=== PATIENT | female | born 1980 | race American Indian/Alaskan Native ===

== ENCOUNTER 2016-07-08 16:24 | Emergency (ER) | payer OTHER ==
[2016-07-08] MEDS ORDERED: MOTRIN ONE (19:29)
[2016-07-08] MEDS ORDERED: MOTRIN PO ONE (19:34)
[2016-07-08] MEDS ORDERED: MORPHINE IM ONE (20:29)
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
--- NOTE | 2016-07-08 21:55 | Cat Scan Report ---
FINAL REPORT PROCEDURE: CT LUMBAR SPINE WO CON TECHNIQUE: Computerized axial tomography of the lumbar spine was performed from T12 to the sacrum without contrast material. HISTORY: LUMBAR SPINE TENDERNESS, PAIN COMPARISON: No prior studies are available for comparison. FINDINGS: No fracture or subluxation is visualized. There is mild lumbar scoliosis convex the left apex at L3. L1-2: No significant abnormality. L2-3: No significant abnormality. L3-4: No significant abnormality. L4-5: Mild disc bulge is present without focal disc herniation or spinal stenosis.. L5-S1: No focal disc herniation is visualized. Severe facet arthritis is present bilaterally.. Other: None. IMPRESSION: Mild scoliosis. No evidence of fracture or subluxation. Severe facet arthritis L5-S1. Mild disc bulge L4-5 level without focal disc herniation or spinal stenosis.
--- NOTE | 2016-07-08 22:08 | Cat Scan Report ---
FINAL REPORT PROCEDURE: CT THORACIC SPINE WO CON TECHNIQUE: Computerized axial tomography of the thoracic spine was performed from C7 - L1 without contrast material. HISTORY: severe back pain COMPARISON: No prior studies are available for comparison. FINDINGS: No fracture or subluxation is visualized. The posterior elements are intact. There is mild thoracolumbar scoliosis convex the right apex at T9. Small anterior osteophytic spurs are visualized in the lower thoracic spine. There is partial calcification of the T6-T7 disc. This is nonspecific. No focal disc herniation or spinal stenosis is visualized. Bone density appears normal. Neural foramina bilaterally are unremarkable. There are moderate size osteophytic spurs at the articulation of the left 9th rib with the left transverse process of T9. No other abnormalities are seen. IMPRESSION: No fracture or subluxation visualized. There is mild scoliosis. Mild degenerative disc disease as described. Moderate-sized osteophytic spurring seen between the articulation of the left 9th rib and the left transverse process of T9. No other abnormalities are identified.
[2016-07-08 22:35] VITALS: BP 150/70
== END 2016-07-08 22:50 | disposition home or self-care (01) ==
LOC: ED 16:24
DX: M54.16 Radiculopathy, lumbar region (principal); M41.9 Scoliosis, unspecified; M53.86 Other specified dorsopathies, lumbar region; I10 Essential (primary) hypertension; Z90.49 Acquired absence of other specified parts of digestive tract; Z90.89 Acquired absence of other organs
CPT/HCPCS: 72128; 72131; 96372; 99284; J2270; J2920

== ENCOUNTER 2016-07-24 15:35 | Emergency (ER) | payer OTHER ==
[2016-07-24 15:47] VITALS: BP 141/93
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
== END 2016-07-24 18:05 | disposition home or self-care (01) ==
LOC: ED 15:35
DX: M25.561 Pain in right knee (principal); M25.461 Effusion, right knee; I10 Essential (primary) hypertension; F17.200 Nicotine dependence, unspecified, uncomplicated; V49.59XA Passenger injured in collision with other motor vehicles in traffic accident, initial encounter; Y93.9 Activity, unspecified; Y92.9 Unspecified place or not applicable; Y99.9 Unspecified external cause status
CPT/HCPCS: 99284

== ENCOUNTER 2017-02-24 12:09 | Emergency (ER) | payer OTHER ==
[2017-02-24 15:06] LABS: Bilirubin,Urine NEG (Negative); Blood,Urine NEG (Negative); Color,Urine Yellow (Yellow); HCG Qualitative,Urine Negative (Negative); Mucus,Urine FEW /HPF; Nitrite,Urine NEG (Negative); Protein,Urine <15 mg/dL mg/dL (Negative)
[2017-02-24] MEDS ORDERED: TORADOL IM ONE (15:54)
--- NOTE | 2017-02-24 16:17 | Emergency Department Report ---
ED Back Pain/Injury HPI - General Chief Complaint: Back Pain/Injury Stated Complaint: BACK PAIN Time Seen by Provider: 02/24/17 14:41 Source: patient Limitations: No Limitations - History of Present Illness Initial Comments: This is a 36-year-old female nontoxic, well nourished in appearance, no acute signs of distress presents to the ED with c/o of chronic intermittent back pain. Patient stated she was seen by a provider and has had CT scan of throacic and lumbar spine with mild scoliosis, severe arthritis of L5-S1, and mild disc bulging of L4-5 without focal disc herniation or spinal stenosis. Patient stated the past 2 days symptoms returned. Patient also stated symptoms radiates to right lower extremity. Patient denies any new trauma to the region. Patient denies any bladder or bowel instability, dysuria, pyuria, hematuria, fever, chills, nausea, vomiting, chest pain, shortness of breath, abdominal pain, pelvic pain. Patient denies any allergies or PMH. MD Complaint: back pain -: days(s) (2) Similar Symptoms Previously: Yes Place: home Radiation: right leg Severity: mild Severity scale (0 -10): 8 Quality: aching Consistency: constant Improves With: none Worsens With: none Associated Symptoms: denies other symptoms. denies: confusion, weakness, chest pain, numbness, difficulty walking, cough, difficulty urinating, diaphoresis, incontinence, fever/chills, constipation, headaches, abdominal pain, loss of appetite, malaise, nausea/vomiting, rash, seizure, shortness of breath, syncope - Related Data Home Medications Medication Instructions Recorded Confirmed Last Taken Lisinopril/Hydrochlorothiazide 20 mg PO BID 08/17/13 08/17/13 Unknown [Zestoretic 20-12.5 mg] Previous Rx's Medication Instructions Recorded Last Taken Type Cyclobenzaprine [Flexeril] 10 mg PO BID #20 tablet 07/24/16 Unknown Rx Naproxen [Naprosyn TAB] 500 mg PO BID #20 tablet 07/24/16 Unknown Rx Tramadol HCl/Acetaminophen 1 each PO Q4HR PRN #30 tablet 07/24/16 Unknown Rx [Ultracet Tablet] Cyclobenzaprine [Flexeril] 10 mg PO BID PRN #10 tablet 02/24/17 Unknown Rx Naproxen [Naprosyn TAB] 500 mg PO BID #30 tablet 02/24/17 Unknown Rx Allergies Allergy/AdvReac Type Severity Reaction Status Date / Time No Known Allergies Allergy Unverified 08/17/13 11:53 ED Review of Systems ROS: Stated complaint: BACK PAIN Other details as noted in HPI Constitutional: denies: chills, fever Eyes: denies: eye pain, eye discharge, vision change ENT: denies: ear pain, throat pain Respiratory: denies: cough, shortness of breath, wheezing Cardiovascular: denies: chest pain, palpitations Endocrine: no symptoms reported Gastrointestinal: denies: abdominal pain, nausea, diarrhea Genitourinary: denies: urgency, dysuria, discharge Musculoskeletal: back pain. denies: joint swelling, arthralgia Skin: denies: rash, lesions Neurological: denies: headache, weakness, paresthesias Psychiatric: denies: anxiety, depression Hematological/Lymphatic: denies: easy bleeding, easy bruising ED Past Medical Hx - Past Medical History Hx Hypertension: Yes Additional medical history: back pain - Surgical History Hx Cholecystectomy: Yes Additional Surgical History: tonsillectomy 2001 - Social History Smoking Status: Never Smoker Substance Use Type: None - Medications Home Medications: Home Medications Medication Instructions Recorded Confirmed Last Taken Type Lisinopril/Hydrochlorothiazide 20 mg PO BID 08/17/13 08/17/13 Unknown History [Zestoretic 20-12.5 mg] Cyclobenzaprine [Flexeril] 10 mg PO BID #20 tablet 07/24/16 Unknown Rx Naproxen [Naprosyn TAB] 500 mg PO BID #20 tablet 07/24/16 Unknown Rx Tramadol HCl/Acetaminophen 1 each PO Q4HR PRN #30 tablet 07/24/16 Unknown Rx [Ultracet Tablet] Cyclobenzaprine [Flexeril] 10 mg PO BID PRN #10 tablet 02/24/17 Unknown Rx Naproxen [Naprosyn TAB] 500 mg PO BID #30 tablet 02/24/17 Unknown Rx ED Physical Exam - General Limitations: No Limitations General appearance: alert, in no apparent distress - Head Head exam: Present: atraumatic, normocephalic, normal inspection - Eye Eye exam: Present: normal appearance, PERRL, EOMI. Absent: scleral icterus, conjunctival injection, nystagmus, periorbital swelling, periorbital tenderness Pupils: Present: normal accommodation - ENT ENT exam: Present: normal exam, normal orophraynx, mucous membranes moist, TM's normal bilaterally, normal external ear exam - Neck Neck exam: Present: normal inspection - Respiratory Respiratory exam: Present: normal lung sounds bilaterally. Absent: respiratory distress, wheezes, rales, rhonchi, stridor, chest wall tenderness, accessory muscle use, decreased breath sounds, prolonged expiratory - Cardiovascular Cardiovascular Exam: Present: regular rate, normal rhythm, normal heart sounds. Absent: bradycardia, tachycardia, irregular rhythm, systolic murmur, diastolic murmur, rubs, gallop - GI/Abdominal GI/Abdominal exam: Present: soft, normal bowel sounds. Absent: distended, tenderness, guarding, rebound, rigid, diminished bowel sounds - Rectal Rectal exam: Present: deferred - Extremities Exam Extremities exam: Present: normal inspection, full ROM, normal capillary refill. Absent: tenderness, pedal edema, joint swelling, calf tenderness - Back Exam Back exam: Present: normal inspection, full ROM, paraspinal tenderness (lumbar region). Absent: tenderness, CVA tenderness (R), CVA tenderness (L), muscle spasm, vertebral tenderness, rash noted - Expanded Back Exam Expanded Back exam: Present: normal rectal tone. Absent: saddle anesthesia Back exam: Negative Straight Leg Raising: Left, Right - Neurological Exam Neurological exam: Present: alert, oriented X3, CN II-XII intact, normal gait, reflexes normal - Psychiatric Psychiatric exam: Present: normal affect, normal mood - Skin Skin exam: Present: warm, dry, intact, normal color. Absent: rash ED Course Vital Signs 02/24/17 12:30 Temperature 98.4 F Pulse Rate 64 Respiratory 18 Rate Blood Pressure 168/98 O2 Sat by Pulse 100 Oximetry - Reevaluation(s) Reevaluation #1: 02/24/17 16:28 Patient is speaking in full sentences with no signs of distress noted. ED Medical Decision Making - Medical Decision Making This is a 36-year-old female that presents with low back strain. Patient is stable and was examined by me. Patient received Toradol in the ED with a history of symptoms has improved subsided. I obtained patient's old medical records on 07/08/[address] scan of spine and the radiologist with mild scoliosis, mild disc bulging, arthritis. Patient be treated with Flexeril and naproxen after she states symptoms has resolved when she took these. Patient was instructed to not operate any machinery while taking Flexeril due to drowsiness. She was instructed Follow-up with a primary care doctor in 3-5 days or if symptoms worsen and continue return to emergency room as soon as possible. At time time of discharge, the patient does not seem toxic or ill in appearance. No acute signs of distress noted. Patient agrees to discharge treatment plan of care. No further questions noted by the patient. Critical care attestation.: If time is entered above; I have spent that time in minutes in the direct care of this critically ill patient, excluding procedure time. ED Disposition Clinical Impression: Low back strain Qualifiers: Encounter type: initial encounter Qualified Code(s): S39.012A - Strain of muscle, fascia and tendon of lower back, initial encounter Disposition: TO HOME OR SELFCARE Is pt being admited?: No Does the pt Need Aspirin: No Condition: Stable Instructions: Low Back Strain (ED), Naproxen (By mouth), Cyclobenzaprine (By mouth) Additional Instructions: Follow-up with your primary care doctor in 3-5 days or if symptoms worsen such as bladder or bowel stability, chest pain, short of breath, numbness or tingling sensation in extremities, headache, dizziness, visual changes, nausea vomiting, or abdominal pain, return back to emergency room as was possible. Take naproxen and Flexeril as prescribed. Do not operate heavy machinery while taking Flexeril due to sedation Prescriptions: Cyclobenzaprine [Flexeril] 10 mg PO BID PRN #10 tablet PRN Reason: Muscle Spasm Naproxen [Naprosyn TAB] 500 mg PO BID #30 tablet Referrals: FREDY MEEKS MD [Primary Care Provider] - 3-5 Days PRIMARY CARE, [Referring] - 3-5 Days [facility] [Outside] - 3-5 Days [facility] [Outside] - 3-5 Days Forms: Work/School Release Form(ED)
[2017-02-24 17:16] VITALS: BP 147/99
== END 2017-02-24 17:14 | disposition home or self-care (01) ==
LOC: ED 12:09
DX: S39.012A Strain of muscle, fascia and tendon of lower back, initial encounter (principal); I10 Essential (primary) hypertension; X58.XXXA Exposure to other specified factors, initial encounter; Y93.89 Activity, other specified; Y99.8 Other external cause status; Y92.89 Other specified places as the place of occurrence of the external cause
CPT/HCPCS: 81001; 81025; 96372; 99283; J1885

== ENCOUNTER 2017-10-08 12:56 | Emergency (ER) | payer OTHER ==
[2017-10-08] MEDS ORDERED: TYLENOL #3 PO ONE (17:40)
[2017-10-08 18:22] LABS: Basophils % (Auto) 0.4 % (0.0-1.8); Eosinophils # (Auto) 0.2 K/mm3 (0.0-0.4); Hematocrit 46.1 % (30.3-42.9); Hemoglobin 15.3 gm/dl (10.1-14.3); Lymphocytes # (Auto) 2.9 K/mm3 (1.2-5.4); Mean Corpuscular HGB Conc 33 % (30-34); Mean Corpuscular Hemoglobin 30 pg (28-32); Mean Corpuscular Volume 91 fl (79-97); Monocytes # (Auto) 0.7 K/mm3 (0.0-0.8); Monocytes % (Auto) 8.6 % (0.0-7.3); Platelet Count 220 K/mm3 (140-440); Red Blood Count 5.09 M/mm3 (3.65-5.03); Red Cell Distribution Width 14.6 % (13.2-15.2)
[2017-10-08 18:29] LABS: BUN/Creatinine Ratio 18; Blood Urea Nitrogen 9 mg/dL (7-17); Calcium 9.5 mg/dL (8.4-10.2); Hemolysis Index 24
--- NOTE | 2017-10-08 19:00 | Emergency Department Report ---
ED Lower Extremity HPI - General Chief Complaint: Extremity Problem,Nontraumatic Stated Complaint: RIGHT KNEE PAIN Time Seen by Provider: 10/08/17 17:36 Source: patient Mode of arrival: Wheelchair Limitations: Physical Limitation - History of Present Illness Initial Comments: This is a 36-year-old female nontoxic, well nourished in appearance, no acute signs of distress presents to the ED with c/o of acute on chronic right knee pain 1 day. Patient stated that she was walking a lot yesterday and developed pain that worsened today. Patient denies any trauma. Patient denies any numbness, tingling, fever, chills, nausea, vomiting, chest pain, shortness of breath, headache, stiff neck. Patient denies any joint swelling or joint redness. Patient denies decreased range of motion. Patient stated has decreased gait due to pain. Patient denies any allergies or significant past medical history. MD Complaint: knee injury -: days(s) (1) Injury: Knee: Right Severity: mild Severity scale (0 -10): 8 Improves With: immobilization Worsens With: weight bearing, movement Associated Symptoms: swelling, able to partially bear weight, ambulatory. denies: snap/pop sensation, numbness, tingling, unable to bear weight - Related Data Home Medications Medication Instructions Recorded Confirmed Last Taken Lisinopril/Hydrochlorothiazide 20 mg PO BID 08/17/13 08/17/13 Unknown [Zestoretic 20-12.5 mg] Previous Rx's Medication Instructions Recorded Last Taken Type Cyclobenzaprine [Flexeril] 10 mg PO BID #20 tablet 07/24/16 Unknown Rx Naproxen [Naprosyn TAB] 500 mg PO BID #20 tablet 07/24/16 Unknown Rx Tramadol HCl/Acetaminophen 1 each PO Q4HR PRN #30 tablet 07/24/16 Unknown Rx [Ultracet Tablet] Cyclobenzaprine [Flexeril] 10 mg PO BID PRN #10 tablet 02/24/17 Unknown Rx Naproxen [Naprosyn TAB] 500 mg PO BID #30 tablet 02/24/17 Unknown Rx Acetaminophen/Codeine [Tylenol 1 tab PO Q6H PRN #12 tab 10/08/17 Unknown Rx /Codeine # 3 tab] Ibuprofen [Motrin] 600 mg PO Q8H PRN #30 tablet 10/08/17 Unknown Rx Allergies Allergy/AdvReac Type Severity Reaction Status Date / Time No Known Allergies Allergy Unverified 08/17/13 11:53 ED Review of Systems ROS: Stated complaint: RIGHT KNEE PAIN Other details as noted in HPI Constitutional: denies: chills, fever Eyes: denies: eye pain, eye discharge, vision change ENT: denies: ear pain, throat pain Respiratory: denies: cough, shortness of breath, wheezing Cardiovascular: denies: chest pain, palpitations Endocrine: no symptoms reported Gastrointestinal: denies: abdominal pain, nausea, diarrhea Genitourinary: denies: urgency, dysuria, discharge Musculoskeletal: arthralgia. denies: back pain, joint swelling Skin: denies: rash, lesions Neurological: denies: headache, weakness, paresthesias Psychiatric: denies: anxiety, depression Hematological/Lymphatic: denies: easy bleeding, easy bruising ED Past Medical Hx - Past Medical History Previous Medical History?: Yes Hx Hypertension: Yes Additional medical history: back pain - Surgical History Past Surgical History?: Yes Hx Cholecystectomy: Yes Additional Surgical History: tonsillectomy 2001 - Social History Smoking Status: Current Every Day Smoker Substance Use Type: None - Medications Home Medications: Home Medications Medication Instructions Recorded Confirmed Last Taken Type Lisinopril/Hydrochlorothiazide 20 mg PO BID 08/17/13 08/17/13 Unknown History [Zestoretic 20-12.5 mg] Cyclobenzaprine [Flexeril] 10 mg PO BID #20 tablet 07/24/16 Unknown Rx Naproxen [Naprosyn TAB] 500 mg PO BID #20 tablet 07/24/16 Unknown Rx Tramadol HCl/Acetaminophen 1 each PO Q4HR PRN #30 tablet 07/24/16 Unknown Rx [Ultracet Tablet] Cyclobenzaprine [Flexeril] 10 mg PO BID PRN #10 tablet 02/24/17 Unknown Rx Naproxen [Naprosyn TAB] 500 mg PO BID #30 tablet 02/24/17 Unknown Rx Acetaminophen/Codeine [Tylenol 1 tab PO Q6H PRN #12 tab 10/08/17 Unknown Rx /Codeine # 3 tab] Ibuprofen [Motrin] 600 mg PO Q8H PRN #30 tablet 10/08/17 Unknown Rx ED Physical Exam - General Limitations: Physical Limitation General appearance: alert, in no apparent distress - Head Head exam: Present: atraumatic, normocephalic - Eye Eye exam: Present: normal appearance Pupils: Present: normal accommodation - ENT ENT exam: Present: normal exam, mucous membranes moist - Neck Neck exam: Present: normal inspection - Respiratory Respiratory exam: Present: normal lung sounds bilaterally. Absent: respiratory distress - Cardiovascular Cardiovascular Exam: Present: regular rate, normal rhythm. Absent: systolic murmur, diastolic murmur, rubs, gallop - GI/Abdominal GI/Abdominal exam: Present: soft, normal bowel sounds - Extremities Exam Extremities exam: Present: normal inspection, full ROM (with pain), tenderness, normal capillary refill. Absent: joint swelling - Expanded Lower Extremity Exam Right Hip exam: Present: normal inspection, full ROM. Absent: tenderness, swelling Upper Leg exam: Present: normal inspection, full ROM. Absent: tenderness, swelling Knee exam: Present: normal inspection, full ROM (with pain), tenderness, swelling, full knee extension. Absent: abrasion, laceration, ecchymosis, deformity, crepidus, dislocation, erythema, effusion, pain w/ pronation/ supination, posterior draw sign, pain/laxity with valgus, pain/laxity with varus Lower Leg exam: Present: normal inspection, full ROM. Absent: tenderness, swelling Ankle exam: Present: normal inspection, full ROM. Absent: tenderness, swelling Foot/Toe exam: Present: normal inspection, full ROM. Absent: tenderness, swelling Neuro vascular tendon exam: Present: no vascular compromise. Absent: pulse deficit, abnormal cap refill, motor deficit, sensory deficit, tendon deficit, extremity cold to touch, pallor, abnormal 2-point discrimination, decreased fine /light touch, foot drop, peroneal nerve deficit, significant pain with passive ROM of distal joint Gait: Positive: observed and limited by pain - Back Exam Back exam: Present: normal inspection, full ROM - Neurological Exam Neurological exam: Present: alert, oriented X3, normal gait - Psychiatric Psychiatric exam: Present: normal affect, normal mood - Skin Skin exam: Present: warm, dry, intact, normal color. Absent: rash ED Course Vital Signs 10/08/17 13:55 Temperature 98.9 F Pulse Rate 74 Respiratory 18 Rate Blood Pressure 165/114 O2 Sat by Pulse 98 Oximetry - Reevaluation(s) Reevaluation #1: 10/08/17 19:08 Patient is speaking in full sentences with no signs of distress noted. ED Lower Extremity MDM - Lab Data Result diagrams: 10/08/17 18:05 10/08/17 18:05 - Medical Decision Making This is a 36-year-old female that presents with right knee strain. Patient is stable and was examined by me. I referred patient to an orthopedic doctor for further evaluation for possible MRI. X-ray has been obtained and dictated by the radiologist. Patient is notified of the x-ray report with noted by the patient. Labs within normal limits. Patient does have normal gait with no tenderness and no joint swelling. No ecchymosis. no joint redness or swelling. Not warm to touch. No signs of cellulites present. Patient received a knee immobilize and crutches and was educated by RN how to use crutches. Patient was instructed to RICE therapy. Patient received Tylenol with codeine for pain and was instructed not to operate any machinery after discharge due to drowsiness. Patient is discharged with Motrin and Tylenol with codeine. At time of discharge, the patient does not seem toxic or ill in appearance. No acute signs of distress noted. Patient agrees to discharge treatment plan of care. No further questions noted by the patient. Critical care attestation.: If time is entered above; I have spent that time in minutes in the direct care of this critically ill patient, excluding procedure time. ED Disposition Clinical Impression: Strain of right knee Qualifiers: Encounter type: initial encounter Qualified Code(s): S86.911A - Strain of unspecified muscle(s) and tendon(s) at lower leg level, right leg, initial encounter Disposition: - TO HOME OR SELFCARE Is pt being admited?: No Does the pt Need Aspirin: No Condition: Stable Instructions: Knee Pain (ED), Knee Immobilizer (ED), RICE Therapy (ED), Acetaminophen/Codeine (By mouth), Ibuprofen (By mouth), Crutch Instructions (ED) Additional Instructions: Follow-up with a orthopedic doctor in 3-5 days or if symptoms worsen and continue return to emergency room as soon as possible. Do not operate any machinery while taking Tylenol with codeine as this may cause drowsiness. Prescriptions: Acetaminophen/Codeine [Tylenol /Codeine # 3 tab] 1 tab PO Q6H PRN #12 tab PRN Reason: pain Ibuprofen [Motrin] 600 mg PO Q8H PRN #30 tablet PRN Reason: Pain Referrals: PRIMARY CAREMD [Primary Care Provider] - 3-5 Days JEANNA ORR MD [Staff Physician] - 3-5 Days [facility] [Outside] - 3-5 Days [facility] [Outside] - 3-5 Days Forms: Work/School Release Form(ED)
--- NOTE | 2017-10-08 21:03 | XRay Report ---
FINAL REPORT PROCEDURE: XR KNEE 3V RT TECHNIQUE: RIGHT knee radiographs, AP, lateral and sunrise views. CPT 19776 HISTORY: knee pain right COMPARISON: 07/24/2016 FINDINGS: Fracture (s) and/or Dislocation(s): None . Alignment: Normal . Joint space(s): There is mild degree joint effusion. Soft tissues: Normal . Bone mineralization: Mild degree osteophyte formation is noted. Foreign bodies: None . IMPRESSION: No acute fracture Mild degree osteoarthritis with mild degree joint effusion.
[2017-10-08 21:43] VITALS: BP 132/64
== END 2017-10-08 21:41 | disposition home or self-care (01) ==
LOC: ED 12:56
DX: S86.911A Strain of unspecified muscle(s) and tendon(s) at lower leg level, right leg, initial encounter (principal); I10 Essential (primary) hypertension; F17.200 Nicotine dependence, unspecified, uncomplicated; Z90.49 Acquired absence of other specified parts of digestive tract; Z90.89 Acquired absence of other organs; Z79.899 Other long term (current) drug therapy; X58.XXXA Exposure to other specified factors, initial encounter; Y93.01 Activity, walking, marching and hiking; Y99.8 Other external cause status; Y92.89 Other specified places as the place of occurrence of the external cause
CPT/HCPCS: 36415; 80048; 84703; 85025

== ENCOUNTER 2018-12-28 10:53 | Emergency (ER) | payer OTHER ==
[2018-12-28 11:56] LABS: Hematocrit 44.7 % (30.3-42.9); Mean Corpuscular HGB Conc 34 % (30-34); Mean Corpuscular Volume 92 fl (79-97); Platelet Count 217 K/mm3 (140-440); Red Blood Count 4.89 M/mm3 (3.65-5.03); Red Cell Distribution Width 14.8 % (13.2-15.2)
[2018-12-28 13:03] LABS: Basophils % (Manual) 0 % (0.0-1.8); Total Cells Counted 100
[2018-12-28 13:04] LABS: Platelet Estimate Consistent w Auto; RBC Morphology Normal
--- NOTE | 2018-12-28 13:11 | XRay Report ---
CHEST 2 VIEWS INDICATION / CLINICAL INFORMATION: sob. COMPARISON: None available. FINDINGS: SUPPORT DEVICES: None. HEART / MEDIASTINUM: No significant abnormality. LUNGS / PLEURA: No significant pulmonary or pleural abnormality. No pneumothorax. ADDITIONAL FINDINGS: No significant additional findings. IMPRESSION: 1. No acute findings. Signer Name: Jonathan Dash MD Signed: 12/28/2018 1:07 PM Workstation Name: [id number]
[2018-12-28 13:22] LABS: Alanine Aminotransferase 40 units/L (7-56); Albumin 4.3 g/dL (3.9-5); BUN/Creatinine Ratio 10; Blood Urea Nitrogen 5 mg/dL (7-17); Calcium 9.4 mg/dL (8.4-10.2); Hemolysis Index 22
[2018-12-28] MEDS ORDERED: cloNIDine 0.1 MG TAB PO ONE (15:54)
[2018-12-28] MEDS ORDERED: HYDROcodone/ACETAMINOPHEN 5-325 MG TAB PO ONE (15:58)
--- NOTE | 2018-12-28 15:58 | Emergency Department Report ---
ED General Adult HPI - General Chief complaint: High BP Stated complaint: DIZZINESS/HTN Time Seen by Provider: 12/28/18 15:50 Source: patient Mode of arrival: Ambulatory Limitations: No Limitations - History of Present Illness Initial comments: Pt is a 38-year-old who comes to the ER today with high blood pressure. She had a nurse come to her home and do a physical for insurance and she was told her blood pressure was high. The patient then adds that she has known hypertension but has been off her medications due to insurance. Patient denies any headache, chest pain or shortness of breath. She denies any other major medical problems. In review the MR it seems that she has had some back pain with recurrent visits for pain medications. Severity scale (0 -10): 8 - Related Data Previous Rx's Medication Instructions Recorded Last Taken Type Lisinopril [Zestril TAB] 20 mg PO QDAY #30 tablet 12/28/18 Unknown Rx hydroCHLOROthiazide [HCTZ] 25 mg PO QDAY #30 tablet 12/28/18 Unknown Rx Allergies Allergy/AdvReac Type Severity Reaction Status Date / Time No Known Allergies Allergy Unverified 08/17/13 11:53 ED Review of Systems ROS: Stated complaint: DIZZINESS/HTN Other details as noted in HPI Comment: All other systems reviewed and negative ED Past Medical Hx - Past Medical History Previous Medical History?: Yes Hx Hypertension: Yes Additional medical history: back pain - Surgical History Past Surgical History?: Yes Hx Cholecystectomy: Yes Additional Surgical History: tonsillectomy 2001 - Family History Family history: no significant - Social History Smoking Status: Current Every Day Smoker Substance Use Type: None - Medications Home Medications: Home Medications Medication Instructions Recorded Confirmed Last Taken Type Lisinopril [Zestril TAB] 20 mg PO QDAY #30 tablet 12/28/18 Unknown Rx hydroCHLOROthiazide [HCTZ] 25 mg PO QDAY #30 tablet 12/28/18 Unknown Rx ED Physical Exam - General Limitations: No Limitations General appearance: alert, in no apparent distress - Head Head exam: Present: atraumatic, normocephalic - Eye Eye exam: Present: normal appearance - ENT ENT exam: Present: mucous membranes moist - Neck Neck exam: Present: normal inspection - Respiratory Respiratory exam: Present: normal lung sounds bilaterally. Absent: respiratory distress - Cardiovascular Cardiovascular Exam: Present: regular rate, normal rhythm. Absent: systolic murmur, diastolic murmur, rubs, gallop - GI/Abdominal GI/Abdominal exam: Present: soft, normal bowel sounds - Extremities Exam Extremities exam: Present: normal inspection - Back Exam Back exam: Present: normal inspection - Neurological Exam Neurological exam: Present: alert, oriented X3 - Psychiatric Psychiatric exam: Present: normal affect, normal mood - Skin Skin exam: Present: warm, dry, intact, normal color. Absent: rash ED Course Vital Signs 12/28/18 12/28/18 12/28/18 10:59 15:51 16:12 Temperature 98.4 F 98.6 F Pulse Rate 76 74 74 Respiratory 18 18 20 Rate Blood Pressure 156/102 166/103 Blood Pressure 166/103 [Left] O2 Sat by Pulse 96 96 Oximetry ED Medical Decision Making - Lab Data Result diagrams: 12/28/18 11:36 12/28/18 11:36 - EKG Data -: EKG Interpreted by Oh EKG shows normal: sinus rhythm Rate: normal - EKG Data When compared to previous EKG there are: no significant change Interpretation: no acute changes - Radiology Data Radiology results: report reviewed, image reviewed - Medical Decision Making Labs 12/28/18 12/28/18 12/28/18 11:36 11:36 Unknown WBC 5.0 RBC 4.89 Hgb 15.0 H Hct 44.7 H MCV 92 MCH 31 MCHC 34 RDW 14.8 Plt Count 217 Add Manual Diff Complete Total Counted 100 Seg Neutrophils % Staff Nurse Midwife Seg Neuts % (Manual) 35.0 L Band Neutrophils % 0 Lymphocytes % (Manual) 56.0 H Reactive Lymphs % (Man) 0 Monocytes % (Manual) 4.0 Eosinophils % (Manual) 5.0 H Basophils % (Manual) 0 Metamyelocytes % 0 Myelocytes % 0 Promyelocytes % 0 Blast Cells % 0 Nucleated RBC % Not Reportable Seg Neutrophils # Man 1.8 Band Neutrophils # 0.0 Lymphocytes # (Manual) 2.8 Abs React Lymphs (Man) 0.0 Monocytes # (Manual) 0.2 Eosinophils # (Manual) 0.3 Basophils # (Manual) 0.0 Metamyelocytes # 0.0 Myelocytes # 0.0 Promyelocytes # 0.0 Blast Cells # 0.0 WBC Morphology Not Reportable Hypersegmented Neuts Not Reportable Hyposegmented Neuts Not Reportable Hypogranular Neuts Not Reportable Smudge Cells Not Reportable Toxic Granulation Not Reportable Toxic Vacuolation Not Reportable Dohle Bodies Not Reportable Pelger-Huet Anomaly Not Reportable Lewis Rods Not Reportable Platelet Estimate Consistent w auto Clumped Platelets Not Reportable Plt Clumps, EDTA Not Reportable Large Platelets Not Reportable Giant Platelets Not Reportable Platelet Satelliting Not Reportable Plt Morphology Comment Not Reportable RBC Morphology Normal Dimorphic RBCs Not Reportable Polychromasia Not Reportable Hypochromasia Not Reportable Poikilocytosis Not Reportable Anisocytosis Not Reportable Microcytosis Not Reportable Macrocytosis Not Reportable Spherocytes Not Reportable Pappenheimer Bodies Not Reportable Sickle Cells Not Reportable Target Cells Not Reportable Tear Drop Cells Not Reportable Ovalocytes Not Reportable Helmet Cells Not Reportable [place] Bodies Not Reportable [place] Rings Not Reportable Amrit Cells Not Reportable Bite Cells Not Reportable Crenated Cell Not Reportable Elliptocytes Not Reportable Acanthocytes (Spur) Not Reportable Rouleaux Not Reportable Hemoglobin C Crystals Not Reportable Schistocytes Not Reportable Malaria parasites Not Reportable Nabeel Bodies Not Reportable Hem Pathologist Commnt No Sodium 139 Potassium 4.7 Chloride 104.8 Carbon Dioxide 20 L Anion Gap 19 BUN 5 L Creatinine 0.5 L Estimated GFR > 60 BUN/Creatinine Ratio 10 Glucose 91 Calcium 9.4 Total Bilirubin 0.30 AST 33 ALT 40 Alkaline Phosphatase 126 Troponin T < 0.010 NT-Pro-B Natriuret Pep 20.42 Total Protein 8.1 Albumin 4.3 Albumin/Globulin Ratio 1.1 bp noted pt off meds labs noted no end organ failure rx and dc home with rx for her bp meds and pcp follow up. pt instructed on plan of care and need to take meds and follow up. - Differential Diagnosis a/c htn Critical care attestation.: If time is entered above; I have spent that time in minutes in the direct care of this critically ill patient, excluding procedure time. ED Disposition Clinical Impression: Hypertension, Nonadherence to medical treatment Disposition: DC-01 TO HOME OR SELFCARE Is pt being admited?: No Does the pt Need Aspirin: No Condition: Stable Instructions: DASH Eating Plan (ED), Hypertension (ED) Additional Instructions: MEDS ORDERED TODAY FOLLOW UP WITH PCP REFERRAL BELOW LOW SALT AND LOW FAT DIET SEE ATTACHED Prescriptions: hydroCHLOROthiazide [HCTZ] 25 mg PO QDAY #30 tablet Lisinopril [Zestril TAB] 20 mg PO QDAY #30 tablet Referrals: [facility] [Outside] - 3-5 Days Time of Disposition: 15:55
[2018-12-28 17:24] VITALS: BP 138/93
== END 2018-12-28 17:38 | disposition home or self-care (01) ==
LOC: ED 10:53
DX: I10 Essential (primary) hypertension (principal); F17.200 Nicotine dependence, unspecified, uncomplicated; M54.9 Dorsalgia, unspecified; Z91.19 Patient's noncompliance with other medical treatment and regimen; Z90.49 Acquired absence of other specified parts of digestive tract; Z90.89 Acquired absence of other organs; Z79.899 Other long term (current) drug therapy
CPT/HCPCS: 36415; 71046; 80053; 83880; 84484; 85007; 85025

== ENCOUNTER 2019-05-02 11:39 | Emergency (ER) | payer BC ==
--- NOTE | 2019-05-02 12:52 | Emergency Department Report ---
Blank Doc - Documentation Documentation: 38-year-old female that presents with generalized weakness and bilateral leg s welling. This initial assessment/diagnostic orders/clinical plan/treatment(s) is/are subject to change based on patient's health status, clinical progression and re- assessment by fellow clinical providers in the ED. Further treatment and workup at subsequent clinical providers discretion. Patient/guardians urged not to elope from the ED as their condition may be serious if not clinically assessed and managed. Initial orders include: 1- Patient sent to MAIN ED for further evaluation and treatment 2- cardiac workup
[2019-05-02 13:41] LABS: Basophils % (Auto) 0.8 % (0.0-1.8); Eosinophils # (Auto) 0.2 K/mm3 (0.0-0.4); Hematocrit 43.7 % (30.3-42.9); Hemoglobin 14.6 gm/dl (10.1-14.3); Lymphocytes # (Auto) 2.7 K/mm3 (1.2-5.4); Lymphocytes % (Auto) 44.6 % (13.4-35.0); Mean Corpuscular HGB Conc 34 % (30-34); Mean Corpuscular Volume 92 fl (79-97); Monocytes # (Auto) 0.6 K/mm3 (0.0-0.8); Monocytes % (Auto) 9.4 % (0.0-7.3); Platelet Count 265 K/mm3 (140-440); Red Blood Count 4.74 M/mm3 (3.65-5.03); Red Cell Distribution Width 14.1 % (13.2-15.2)
--- NOTE | 2019-05-02 14:14 | XRay Report ---
CHEST 2 VIEWS INDICATION: Chest Pain. COMPARISON: 12/28/2018. FINDINGS: Support devices: None. Heart: Within normal limits. Lungs/Pleura: No acute air space or interstitial disease. Persistent scarring left base. No significa nt pleural effusion. IMPRESSION: No acute findings. Signer Name: Pravin Martins MD Signed: 05/02/2019 2:09 PM Workstation Name: [id number]
[2019-05-02] MEDS ORDERED: FUROSEMIDE 40 MG/4 ML INJ IV ONE (14:59)
--- NOTE | 2019-05-02 15:03 | Emergency Department Report ---
HPI - General Chief Complaint: Dyspnea/Respdistress Time Seen by Provider: 05/02/19 12:50 - HPI HPI: 38-year-old -[place] female presents to the emergency department with complaint of a one-week history of progressively worsening bilateral lower e xtremity swelling from the knees down through the feet. She denies any skin color change, rash, but does have pain to these areas. She denies any fever, chest pain, shortness of breath. No recent travel or sick contacts at home. She denies any history of CHF but says that she has been on "water pills" in the past that is HCTZ. She has a past medical history of hypertension. She has not taken anything for symptoms prior to presentation today. ED Past Medical Hx - Past Medical History Previous Medical History?: Yes Hx Hypertension: Yes Additional medical history: back pain - Surgical History Past Surgical History?: Yes Hx Cholecystectomy: Yes Additional Surgical History: tonsillectomy 2001 - Social History Smoking Status: Never Smoker Substance Use Type: Marijuana - Medications Home Medications: Home Medications Medication Instructions Recorded Confirmed Last Taken Type hydroCHLOROthiazide [HCTZ] 25 mg PO QDAY #30 tablet 12/28/18 Unknown Rx lisinopriL [Zestril TAB] 20 mg PO QDAY #30 tablet 12/28/18 Unknown Rx Furosemide [Lasix] 20 mg PO QDAY #4 tablet 05/02/19 Unknown Rx ED Review of Systems ROS: Stated complaint: GENERAL WEAKNESS Other details as noted in HPI Comment: All other systems reviewed and negative Constitutional: denies: chills, fever Eyes: denies: eye pain, vision change ENT: denies: ear pain, throat pain Respiratory: denies: cough, shortness of breath Cardiovascular: edema. denies: chest pain Gastrointestinal: denies: abdominal pain, vomiting Genitourinary: denies: dysuria, discharge Musculoskeletal: myalgia. denies: back pain Skin: denies: rash, lesions Neurological: denies: headache, numbness, paresthesias Physical Exam - Physical Exam Vital Signs: Vital Signs 05/02/19 05/02/19 05/02/19 12:50 12:53 13:35 Temperature 98 F Pulse Rate 67 85 Respiratory 20 24 Rate Blood Pressure 197/118 161/100 [Right] O2 Sat by Pulse 97 100 Oximetry Physical Exam: GENERAL: The patient is well-developed well-nourished. HENT: Normocephalic. Atraumatic. Patient has moist mucous membranes. EYES: Extraocular motions are intact. Pupils equal reactive to light bilaterally. NECK: Supple. Trachea is midline. CHEST/LUNGS: Clear to auscultation. There is no respiratory distress noted. HEART/CARDIOVASCULAR: Regular. There is no tachycardia. ABDOMEN: Abdomen is soft, nontender. Patient has normal bowel sounds. There is no abdominal distention. SKIN: Skin is warm and dry. Moderate bilateral lower extremity nonpitting edema from the knees distally to the feet. No erythema, ecchymosis, rash or lesions. NEURO: The patient is awake, alert, and oriented. The patient is cooperative. The patient has no focal neurologic deficits. Normal speech. MUSCULOSKELETAL: There is some mild tenderness to palpation along the bilateral calves but no obvious deformity. There is no limitation range of motion. There is no evidence of acute injury. ED Course Vital Signs 05/02/19 05/02/19 05/02/19 12:50 12:53 13:35 Temperature 98 F Pulse Rate 67 85 Respiratory 20 24 Rate Blood Pressure 197/118 161/100 [Right] O2 Sat by Pulse 97 100 Oximetry ED Medical Decision Making - Lab Data Result diagrams: 05/02/19 13:14 05/02/19 13:14 - Radiology Data Radiology results: report reviewed, image reviewed interpreted by me: Chest x-ray does not show any acute process. There are no pleural effusions, obvious pneumonia and there is no pneumothorax. Bilateral lower extremity venous Doppler ultrasounds are negative for DVT - Medical Decision Making This patient presents with a one-week history of bilateral lower extremity swelling that is causing her some pain. Venous Doppler ultrasounds were completed that did not show any evidence of DVT in either extremity. Chest x- ray did not show any pleural effusions or any other acute process. Her labs were unremarkable including a low BNP that essentially rules out congestive heart failure. Patient was given a dose of IV Lasix and she began to diurese. Her vital signs been stable throughout her ED course. The patient appears safe for discharge home at this time. She will be placed on a few days of Lasix and has been given multiple referrals for primary care physicians for follow-up. She will return to the ER with any worsening of her symptoms or any acute distress. - Differential Diagnosis CHF, DVT, venous stasis Critical Care Time: No Critical care attestation.: If time is entered above; I have spent that time in minutes in the direct care of this critically ill patient, excluding procedure time. ED Disposition Clinical Impression: Bilateral lower extremity edema Hypertension Qualifiers: Hypertension type: essential hypertension Qualified Code(s): I10 - Essential (primary) hypertension Disposition: TO HOME OR SELFCARE Is pt being admited?: No Condition: Stable Instructions: Leg Edema (ED), Hypertension (ED) Additional Instructions: Please follow-up with a primary care physician in the next few days. Return to the emergency department with any worsening of your symptoms or with any acute distress. Try and stay away from foods that are high in salt and caffeinated products. Take your blood pressure medications as prescribed. Keep a blood pressure log. Prescriptions: Furosemide [Lasix] 20 mg PO QDAY #4 tablet Referrals: PRIMARY CAREMD [Primary Care Provider] - 2-3 Days KIMBERLY RANGEL MD [Staff Physician] - 2-3 Days SANTI PONCE MD [Staff Physician] - 2-3 Days BENJI WAYNE MD [Staff Physician] - 2-3 Days [facility] [Outside] - 2-3 Days Time of Disposition: 17:38
[2019-05-02 16:21] LABS: Alanine Aminotransferase 29 units/L (7-56); Albumin 4.1 g/dL (3.9-5); BUN/Creatinine Ratio 15; Blood Urea Nitrogen 9 mg/dL (7-17); Calcium 9.7 mg/dL (8.4-10.2); Hemolysis Index 32
--- NOTE | 2019-05-02 18:20 | Vascular Lab Report ---
DUPLEX DOPPLER LOWER EXTREMITY VEINS, BILATERAL INDICATION: B/L lower extremity swelling. TECHNIQUE: Duplex doppler imaging was performed through the veins of both lower extremities using venous fabiola darío and other maneuvers. COMPARISON: None available. FINDINGS: Right Common Femoral vein: Negative. Right Superficial Femoral vein: Negative. Right Popliteal vein: Negative. Right Calf veins: Negative. Left Common Femoral vein: Negative. Left Superficial Femoral vein: Negative. Left Popliteal vein: Negative. Left Calf veins: Negative. Additional findings: None. IMPRESSION: 1. No sonographic evidence for DVT in either lower extremity. Signer Name: Mitchell Handy MD Signed: 05/02/2019 6:16 PM Workstation Name: [id number]
[2019-05-02 19:03] VITALS: BP 151/89
== END 2019-05-02 19:23 | disposition home or self-care (01) ==
LOC: ED 11:39
DX: I10 Essential (primary) hypertension (principal); R60.0 Localized edema; F12.90 Cannabis use, unspecified, uncomplicated; Z79.899 Other long term (current) drug therapy; Z90.49 Acquired absence of other specified parts of digestive tract
CPT/HCPCS: 36415; 71046; 80053; 83880; 84484; 84703; 85025; 93005; 93010; 93970; 96374; 99285; J1940

== ENCOUNTER 2020-04-01 20:56 | Emergency (ER) | payer BC, OTHER ==
[2020-04-01] MEDS ORDERED: BENZONATATE 100 MG CAP PO ONE (21:15)
--- NOTE | 2020-04-01 21:59 | XRay Report ---
CHEST 2 VIEWS INDICATION / CLINICAL INFORMATION: cough. COMPARISON: 05/02/2019 FINDINGS: SUPPORT DEVICES: None. HEART / MEDIASTINUM: No significant abnormality. LUNGS / PLEURA: Mild right basilar parenchymal disease is present worrisome for pneumonia. The remai nder of the lungs are grossly clear. No pleural effusion. No pneumothorax. ADDITIONAL FINDINGS: No significant additional findings. IMPRESSION: 1. Suspect right basilar pneumonia. Signer Name: Arabella Scott MD Signed: 04/01/2020 9:55 PM Workstation Name: [id number]
[2020-04-01] MEDS ORDERED: LIDOCAINE-MPF (1%) 10 MG/1 ML VIAL 5 ML INFILTRATI ONE (22:20)
[2020-04-01] MEDS ORDERED: AZITHROMYCIN 250 MG TAB PO ONE (22:20)
--- NOTE | 2020-04-01 22:25 | Emergency Department Report ---
- General Chief Complaint: Dyspnea/Respdistress Stated Complaint: HA/CHEST PAIN Time Seen by Provider: 04/01/20 21:11 Source: patient Mode of arrival: Ambulatory Limitations: No Limitations - History of Present Illness Initial Comments: This is a 39-year-old female nontoxic, well nourished in appearance, no acute signs of distress presents to the ED with c/o of productive cough, shortness of breath, subjective fever, chills, body aches, rhinorrhea, nasal congestion x several days. Patient describes productive cough as yellow mucus production. Patient denies any sick contact. Patient denies any recent travels, long car, recent hospital stays. Patient denies any calf pain or calf tenderness. Patient denies any chest pain, fever, chills, nausea, vomiting, hemoptysis, n umbness, tingling, headache or stiff neck. Patient denies any allergies. Patient stated has past medical history of hypertension which she has not been taking her HCTZ and lisinopril for about a year. MD Complaint: cough, rhinorrhea, nasal congestion -: days(s) Severity: mild Severity scale (0 -10): 3 Quality: aching Consistency: constant Improves With: nothing Worsens With: nothing Associated Symptoms: headache, rhinorrhea, nasal congestion, cough, shortness of breath. denies: fever, chills, myalgias, diaphoresis, sore throat, stiff neck, chest pain, abdominal pain, nausea, vomiting, diarrhea, dysuria, rash, confusion, right sweats, weight loss, epistaxis, hoarseness, ear pain Treatments Prior to Arrival: none - Related Data Previous Rx's Medication Instructions Recorded Last Taken Type hydroCHLOROthiazide [HCTZ] 25 mg PO QDAY #30 tablet 12/28/18 Unknown Rx lisinopriL [Zestril TAB] 20 mg PO QDAY #30 tablet 12/28/18 Unknown Rx Furosemide [Lasix] 20 mg PO QDAY #4 tablet 05/02/19 Unknown Rx Azithromycin [Zithromax Z-VIN] 250 mg PO DAILY #6 tablet 04/01/20 Unknown Rx hydroCHLOROthiazide [HCTZ] 25 mg PO DAILY #30 tablet 04/02/20 Unknown Rx lisinopriL [Zestril TAB] 20 mg PO QDAY #30 tablet 04/02/20 Unknown Rx Allergies Allergy/AdvReac Type Severity Reaction Status Date / Time No Known Allergies Allergy Unverified 08/17/13 11:53 ED Review of Systems ROS: Stated complaint: HA/CHEST PAIN Other details as noted in HPI Constitutional: denies: chills, fever Eyes: denies: eye pain, eye discharge, vision change ENT: congestion. denies: ear pain, throat pain Respiratory: cough, shortness of breath. denies: wheezing Cardiovascular: denies: chest pain, palpitations Endocrine: no symptoms reported Gastrointestinal: denies: abdominal pain, nausea, diarrhea Genitourinary: denies: urgency, dysuria, discharge Musculoskeletal: denies: back pain, joint swelling, arthralgia Skin: denies: rash, lesions Neurological: denies: headache, weakness, paresthesias Psychiatric: denies: anxiety, depression Hematological/Lymphatic: denies: easy bleeding, easy bruising ED Past Medical Hx - Past Medical History Previous Medical History?: Yes Hx Hypertension: Yes Additional medical history: back pain - Surgical History Hx Cholecystectomy: Yes Additional Surgical History: tonsillectomy 2001 - Social History Smoking Status: Never Smoker Substance Use Type: None - Medications Home Medications: Home Medications Medication Instructions Recorded Confirmed Last Taken Type hydroCHLOROthiazide [HCTZ] 25 mg PO QDAY #30 tablet 12/28/18 Unknown Rx lisinopriL [Zestril TAB] 20 mg PO QDAY #30 tablet 12/28/18 Unknown Rx Furosemide [Lasix] 20 mg PO QDAY #4 tablet 05/02/19 Unknown Rx Azithromycin [Zithromax Z-VIN] 250 mg PO DAILY #6 tablet 04/01/20 Unknown Rx hydroCHLOROthiazide [HCTZ] 25 mg PO DAILY #30 tablet 04/02/20 Unknown Rx lisinopriL [Zestril TAB] 20 mg PO QDAY #30 tablet 04/02/20 Unknown Rx ED Physical Exam - General Limitations: No Limitations General appearance: alert, in no apparent distress - Head Head exam: Present: atraumatic, normocephalic - Eye Eye exam: Present: normal appearance - Neck Neck exam: Present: normal inspection, full ROM - Respiratory Respiratory exam: Present: normal lung sounds bilaterally. Absent: respiratory distress, wheezes, rales, rhonchi, stridor, chest wall tenderness, accessory muscle use, decreased breath sounds, prolonged expiratory - Cardiovascular Cardiovascular Exam: Present: regular rate, normal rhythm, normal heart sounds. Absent: irregular rhythm, systolic murmur, diastolic murmur, rubs, gallop - Extremities Exam Extremities exam: Present: normal inspection, full ROM - Back Exam Back exam: Present: normal inspection, full ROM. Absent: tenderness, CVA tenderness (R), CVA tenderness (L), muscle spasm, paraspinal tenderness, vertebral tenderness, rash noted - Neurological Exam Neurological exam: Present: alert, oriented X3, normal gait - Psychiatric Psychiatric exam: Present: normal affect, normal mood - Skin Skin exam: Present: warm, dry, intact, normal color. Absent: rash ED Course Vital Signs 04/01/20 21:01 Temperature 98.9 F Pulse Rate 98 H Respiratory 17 Rate Blood Pressure 186/111 O2 Sat by Pulse 97 Oximetry - Reevaluation(s) Reevaluation #1: 04/01/20 22:27 Patient is speaking in full sentences with no signs of distress noted. ED Medical Decision Making - Medical Decision Making This is a 39-year-old female that presents with pneumonia with suspected Covid. Patient is stable and was examined by me. Patient was educated on importance of taking blood pressure medication and hypertension itself. I will refill patient's medication. Chest x-ray has been obtained and dictated by radiologist with normal exam. Patient is notified of x-ray results with no questions noted. Patient does meet clinical concerns of COVID-19 but patient was instructed and educated on signs and symptoms and to self quarantine and seek medical attention as soon as possible if symptoms worsen and continue. Patient received Rocephin and azithromycin in the ER. Patient be discharged with Z-Vin. Patient was instructed to increase hydration, rest and take Tylenol for fever episodes. Patient received tesslone perrls in the ED. Vitals stable. Patient is nonfebrile and normal heart rate. Patient was instructed Follow-up with a primary care doctor in 3-5 days or if symptoms worsen and continue return to emergency room as soon as possible. At time time of discharge, the patient does not seem toxic or ill in appearance. No acute signs of distress noted. Patient agrees to discharge treatment plan of care. No further questions noted by the patient. According to ACEP: (1) in ED patients with asymptomatic markedly elevated blood pressure, routine screening for acute target organ injury (eg, serum creatinine, urinalysis, ECG) is not required. (1) In patients with asymptomatic markedly elevated blood pressure, routine ED medical intervention is not required. Critical care attestation.: If time is entered above; I have spent that time in minutes in the direct care of this critically ill patient, excluding procedure time. ED Disposition Clinical Impression: Suspected COVID-19 virus infection, HTN (hypertension) PNA (pneumonia) Qualifiers: Pneumonia type: due to unspecified organism Laterality: right Lung location: lower lobe of lung Qualified Code(s): J18.9 - Pneumonia, unspecified organism Disposition: DC- TO HOME OR SELFCARE Is pt being admited?: No Does the pt Need Aspirin: No Condition: Stable Instructions: COVID-19 Frequently Asked Questions, COVID-19, Community-Acquired Pneumonia, Adult, [id number], Bacterial Pneumonia (ED), Hypertension (ED), Hypertension, Adult Additional Instructions: Follow-up with a primary care doctor in 3-5 days or if symptoms worsen and continue return to emergency room as soon as possible. As educated and instructed to you must self quarantine yourself and people that you have been in close contact with similar symptoms for the next 14 days. Please see your nearest health department or primary care doctor that you are referred to for COVID testing. Increased rest, hydration, and take Tylenol as prescribed for fever episode. Prescriptions: hydroCHLOROthiazide [HCTZ] 25 mg PO DAILY #30 tablet lisinopriL [Zestril TAB] 20 mg PO QDAY #30 tablet Azithromycin [Zithromax Z-VIN] 250 mg PO DAILY #6 tablet Referrals: LILO IGLESIAS MD [Primary Care Provider] - 3-5 Days TARIQ MCCURDY MD [Staff Physician] - 3-5 Days Time of Disposition: 22:35
[2020-04-02 00:12] VITALS: BP 192/130
== END 2020-04-02 00:19 | disposition home or self-care (01) ==
LOC: ED 20:56
DX: J18.9 Pneumonia, unspecified organism (principal); Z20.822 Contact with and (suspected) exposure to COVID-19; I10 Essential (primary) hypertension; Z90.49 Acquired absence of other specified parts of digestive tract; Z90.89 Acquired absence of other organs; Z79.2 Long term (current) use of antibiotics; Z79.899 Other long term (current) drug therapy
CPT/HCPCS: 71046; 96372; 99283; J0696

== ENCOUNTER 2020-06-11 11:20 | Emergency (ER) | payer OTHER ==
[2020-06-11 11:31] VITALS: BP 155/111
--- NOTE | 2020-06-11 13:17 | Emergency Department Report ---
ED General Adult HPI - General Chief complaint: Extremity Injury, Lower Stated complaint: RT ANKLE TWISTED Time Seen by Provider: 06/11/20 13:13 Source: patient Mode of arrival: Ambulatory Limitations: No Limitations - History of Present Illness Initial comments: 39-year-old female patient presents emergency department with complaints of traumatic right foot and ankle pain starting 2 days ago. Patient states she was ambulating when she accidentally missed a step and twisted her ankle. There was no resulting fall, head injury or loss of consciousness. Patient has been bearing weight on her right foot since the injury occurred, but pain is worse with ambulation. Took Tylenol prior to arrival. No history of prior injuries to the right lower extremity. Denies hip pain, knee pain, paresthesias, numbness, skin color changes. Denies all other complaints at this time. Severity scale (0 -10): 9 - Related Data Previous Rx's Medication Instructions Recorded Last Taken Type hydroCHLOROthiazide [HCTZ] 25 mg PO QDAY #30 tablet 12/28/18 Unknown Rx lisinopriL [Zestril TAB] 20 mg PO QDAY #30 tablet 12/28/18 Unknown Rx Furosemide [Lasix] 20 mg PO QDAY #4 tablet 05/02/19 Unknown Rx Azithromycin [Zithromax Z-STACY] 250 mg PO DAILY #6 tablet 04/01/20 Unknown Rx hydroCHLOROthiazide [HCTZ] 25 mg PO DAILY #30 tablet 04/02/20 Unknown Rx lisinopriL [Zestril TAB] 20 mg PO QDAY #30 tablet 04/02/20 Unknown Rx Naproxen [Naprosyn] 500 mg PO BID #20 tablet 06/11/20 Unknown Rx Allergies Allergy/AdvReac Type Severity Reaction Status Date / Time No Known Allergies Allergy Unverified 08/17/13 11:53 ED Review of Systems ROS: Stated complaint: RT ANKLE TWISTED Other details as noted in HPI Other: CARDIOVASCULAR: Negative for chest pain. PULMONARY: Negative for dyspnea. GASTROINTESTINAL: Negative for abdominal pain. MUSCULOSKELETAL: Positive for right foot and right ankle pain. NEUROLOGICAL: Negative for headache. INTEGUMENTARY: Negative for ecchymosis. ED Past Medical Hx - Past Medical History Previous Medical History?: Yes Hx Hypertension: Yes Additional medical history: back pain - Surgical History Past Surgical History?: Yes Hx Cholecystectomy: Yes Additional Surgical History: tonsillectomy 2001 - Social History Smoking Status: Never Smoker Substance Use Type: None - Medications Home Medications: Home Medications Medication Instructions Recorded Confirmed Last Taken Type hydroCHLOROthiazide [HCTZ] 25 mg PO QDAY #30 tablet 12/28/18 Unknown Rx lisinopriL [Zestril TAB] 20 mg PO QDAY #30 tablet 12/28/18 Unknown Rx Furosemide [Lasix] 20 mg PO QDAY #4 tablet 05/02/19 Unknown Rx Azithromycin [Zithromax Z-STACY] 250 mg PO DAILY #6 tablet 04/01/20 Unknown Rx hydroCHLOROthiazide [HCTZ] 25 mg PO DAILY #30 tablet 04/02/20 Unknown Rx lisinopriL [Zestril TAB] 20 mg PO QDAY #30 tablet 04/02/20 Unknown Rx Naproxen [Naprosyn] 500 mg PO BID #20 tablet 06/11/20 Unknown Rx ED Physical Exam - General Limitations: No Limitations - Other Other exam information: General: Awake, appropriately interactive, no acute distress. Neck: Supple. Full range of motion intact. Cardiovascular: Normal peripheral perfusion. Pulmonary: No respiratory distress. Patient is speaking normally without use of accessory muscles. Skin: No apparent rashes or lesions. Neurological: No facial asymmetry. Speech is clear. Follows commands. Patient is alert and oriented. Musculoskeletal: Tenderness to palpation throughout the dorsum of the right foot and right lateral malleolus with surrounding soft tissue swelling. No obvious deformity or dislocation. No plantar ecchymosis. Sepulveda test is negative. Patient is able to bear weight on the right foot with difficulty. Distal neurovascular and motor/sensory function intact. Psych: Cooperative. Appropriate mood and affect. ED Course Vital Signs 06/11/20 11:29 Temperature 97.6 F Pulse Rate 83 Respiratory 17 Rate Blood Pressure 155/111 [Right] O2 Sat by Pulse 97 Oximetry ED Medical Decision Making - Radiology Data Patient: RILEY BACON MR#: [id number] : 1980 Acct:[id number] Age/Sex: 39 / F ADM Date: 06/11/20 Loc: ED Attending Dr: Ordering Physician: GEOVANY STROUD Date of Service: 06/11/20 Procedure(s): XR ankle 3+V RT Accession Number(s): [id number] cc: GEOVANY STROUD Fluoro Time In Minutes: XR ankle 3+V RT, XR foot 3+V RT INDICATION / CLINICAL INFORMATION: twisted ankle. COMPARISON: None available. FINDINGS: Mild soft tissue swelling. Ossific fragment along the distal medial malleolus with sclerotic margins is most likely sequela of remote trauma. No acute fracture of foot or ankle. Normal alignment. Joint spaces are preserved. No destructive osseous lesion or suspicious periosteal reaction. Impression: 1.No acute fracture. Signer Name: Kana Perkins MD Signed: 06/11/2020 2:18 PM Workstation Name: [email or web address] Transcribed By: ARPAN Dictated By: Kana Perkins MD Electronically Authenticated By: Kana Perkins MD Signed Date/Time: 06/11/201417 DD/ 11 TD/TT: - Medical Decision Making Differential diagnosis including but not limited to: sprain, strain, fracture, contusion, dislocation, Achilles tendon injury On reevaluation, patient remains stable. Repeat neurovascular exam remains intact. X-rays of the right foot/right ankle show mild soft tissue swelling and likely sequela of remote trauma to the distal medial malleolus without acute fracture. Patient will be placed in a Velcro ankle brace, provided with crutches and appropriate analgesics, and referred to primary care provider for close outpatient follow-up. Patient expressed understanding and is agreeable to plan of care. RICE precautions discussed. Strict return precautions provided. Repeat exam is unremarkable and benign. History, exam, diagnostic testing, and current condition do not suggest worrisome pathology to warrant further testing, continued ED treatment, admission, or surgical evaluation at this point. Given the low probability of a significant medical illness, it would be more likely to result in harm than benefit to perform further testing at this stage. Discussed findings, presumptive diagnosis, need for follow-up and specific signs/symptoms that should prompt immediate return to the emergency department. Instructions were explained in detail to the patient in addition to giving written discharge information. Patient expressed understanding and was given the opportunity to ask questions, all of which were satisfactorily answered prior to discharge home. Critical care attestation.: If time is entered above; I have spent that time in minutes in the direct care of this critically ill patient, excluding procedure time. ED Disposition Clinical Impression: Right ankle sprain Qualifiers: Encounter type: initial encounter Involved ligament of ankle: unspecified ligament Qualified Code(s): S93.401A - Sprain of unspecified ligament of right ankle, initial encounter Disposition: TO HOME OR SELFCARE Is pt being admited?: No Does the pt Need Aspirin: No Condition: Stable Instructions: Ankle Sprain, [id number] Additional Instructions: Take Tylenol every 4 hours as needed for pain. Take Naprosyn with food twice daily as needed for pain. Wear splint as directed. Use crutches as needed. Apply ice to the affected area as needed for swelling. Keep right foot/right ankle elevated as often as possible to reduce swelling. Follow-up with your primary care provider within 1 week. Call today to schedule an appointment. Return to the emergency department immediately for new or worsening symptoms. Prescriptions: Naproxen [Naprosyn] 500 mg PO BID #20 tablet Referrals: PRIMARY MD KELSIE [Primary Care Provider] - 3-5 Days TARIQ MCCURDY MD [Staff Physician] - 3-5 Days Time of Disposition: 14:33
--- NOTE | 2020-06-11 14:23 | XRay Report ---
XR ankle 3+V RT, XR foot 3+V RT INDICATION / CLINICAL INFORMATION: twisted ankle. COMPARISON: None available. FINDINGS: Mild soft tissue swelling. Ossific fragment along the distal medial malleolus with sclerotic margins is most likely sequela of remote trauma. No acute fracture of foot or ankle. Normal alignment. Join t spaces are preserved. No destructive osseous lesion or suspicious periosteal reaction. Impression: 1.No acute fracture. Signer Name: Kana Perkins MD Signed: 06/11/2020 2:18 PM Workstation Name: [email or web address]
== END 2020-06-11 16:06 | disposition home or self-care (01) ==
LOC: ED 11:20
DX: S93.401A Sprain of unspecified ligament of right ankle, initial encounter (principal); I10 Essential (primary) hypertension; Z90.49 Acquired absence of other specified parts of digestive tract; Z79.899 Other long term (current) drug therapy; X50.1XXA Overexertion from prolonged static or awkward postures, initial encounter; Y93.89 Activity, other specified; Y92.89 Other specified places as the place of occurrence of the external cause; Y99.8 Other external cause status

== ENCOUNTER 2021-01-12 20:59 | Observation (INO) | payer OTHER ==
[2021-01-12] MEDS ORDERED: ALBUTEROL 2.5 MG/3 ML NEBU IH ONE ×2 (21:41→23:27)
[2021-01-12] MEDS ORDERED: IPRATROPIUM 0.02% NEBU 2.5 ML IH ONE ×2 (21:41→23:27)
[2021-01-12] MEDS ORDERED: methylPREDNISolone Sod Succinate 125 MG/2 ML INJ IV ONE (21:42)
[2021-01-12] MEDS ORDERED: MAGNESIUM SULFATE 2 GM/50 ML BAG IV ONE (21:42)
[2021-01-12] MEDS ORDERED: SODIUM CHLORIDE 0.9% 1000 ML 1,000 ML IV ONE ×2 (21:42→23:29)
--- NOTE | 2021-01-12 21:47 | Emergency Department Report ---
HPI - General Chief Complaint: Adult Asthma Time Seen by Provider: 01/12/21 21:35 - HPI HPI: Room 37 The patient is a 40-year-old female present with a chief complaint of shortness of breath. Patient states for the past 7 days she has had constant shortness of breath with wheezing. The patient states her MDI has not helped. Patient states she has had a dry cough since yesterday. Patient denies history of fever, nausea, vomiting or diarrhea. The patient states she has been vaccinated against Covid receiving her second Pfizer vaccine 07/11/2020 ED Past Medical Hx - Past Medical History Previous Medical History?: Yes Hx Hypertension: Yes Hx Asthma: Yes Additional medical history: back pain - Surgical History Past Surgical History?: Yes Hx Cholecystectomy: Yes Additional Surgical History: tonsillectomy 2001 - Family History Family history: no significant - Social History Smoking Status: Former Smoker (None since September 2020) Substance Use Type: None (Denies illicit drug use) - Medications Home Medications: Home Medications Medication Instructions Recorded Confirmed Last Taken Type hydroCHLOROthiazide [HCTZ] 25 mg PO QDAY #30 tablet 12/28/18 Unknown Rx lisinopriL [Zestril TAB] 20 mg PO QDAY #30 tablet 12/28/18 Unknown Rx Furosemide [Lasix] 20 mg PO QDAY #4 tablet 05/02/19 Unknown Rx Azithromycin [Zithromax Z-STACY] 250 mg PO DAILY #6 tablet 04/01/20 Unknown Rx hydroCHLOROthiazide [HCTZ] 25 mg PO DAILY #30 tablet 04/02/20 Unknown Rx lisinopriL [Zestril TAB] 20 mg PO QDAY #30 tablet 04/02/20 Unknown Rx Naproxen [Naprosyn] 500 mg PO BID #20 tablet 06/11/20 Unknown Rx ED Review of Systems ROS: Stated complaint: CANNOT BREATHE Other details as noted in HPI Constitutional: denies: fever Eyes: denies: eye pain ENT: denies: throat pain Respiratory: cough, shortness of breath, wheezing Endocrine: no symptoms reported Gastrointestinal: denies: nausea, vomiting, diarrhea Musculoskeletal: myalgia Neurological: denies: headache Physical Exam - Physical Exam Vital Signs: Vital Signs 01/12/21 21:22 Temperature 99.8 F H Pulse Rate 142 H Respiratory 18 Rate Blood Pressure 163/115 O2 Sat by Pulse 95 Oximetry Physical Exam: GENERAL: The patient is well-developed well-nourished female lying on stretcher appearing short of breath. [] HEENT: Normocephalic. Atraumatic. Extraocular motions are intact. Patient has moist mucous membranes. NECK: Supple. Trachea midline CHEST/LUNGS: Diffuse expiratory wheezing. There is increased work of breathing noted HEART/CARDIOVASCULAR: Regular. There is tachycardia. There is no gallop rub or murmur. ABDOMEN: Abdomen is soft, nontender. Patient has normal bowel sounds. There is no abdominal distention. SKIN: There is no rash. There is no edema. There is no diaphoresis. NEURO: The patient is awake, alert, and oriented. The patient is cooperative. The patient has no focal neurologic deficits. The patient has normal speech. GCS 15 MUSCULOSKELETAL: There is no evidence of acute injury. ED Course Vital Signs 01/12/21 21:22 Temperature 99.8 F H Pulse Rate 142 H Respiratory 18 Rate Blood Pressure 163/115 O2 Sat by Pulse 95 Oximetry - Reevaluation(s) Reevaluation #1: 01/12/21 22:50 Patient states she feels unchanged. Patient still in the middle of initial neb. Will reevaluate after completion 01/12/21 23:28 Status post neb patient states she feels unchanged. Wheezing has decreased there is more rhonchi present the patient exhibits increased work of breathing still. We will admit the patient to the hospital for further treatment ED Medical Decision Making - Lab Data Result diagrams: 01/12/21 21:48 01/12/21 21:48 Laboratory Tests 01/12/21 01/12/21 21:48 21:48 WBC 9.2 RBC 5.42 H Hgb 16.6 H Hct 49.5 H MCV 91 MCH 31 MCHC 34 RDW 14.1 Plt Count 251 Lymph % (Auto) 26.4 [place] % (Auto) 9.7 H Eos % (Auto) 3.6 Baso % (Auto) 0.3 Lymph # (Auto) 2.4 [place] # (Auto) 0.9 H Eos # (Auto) 0.3 Baso # (Auto) 0.0 Seg Neutrophils % 60.0 Seg Neutrophils # 5.5 Sodium 139 Potassium 4.2 Chloride 102.5 Carbon Dioxide 15 L Anion Gap 26 BUN 6 L Creatinine 0.5 L Estimated GFR > 60 BUN/Creatinine Ratio 12 Glucose 153 H Calcium 9.0 - Radiology Data Radiology results: report reviewed (Chest x-ray), image reviewed (Chest x-ray) interpreted by me: Chest x-ray-no definite focal infiltrates, no pneumothorax [facility] [address] [place] [address] XRay Report Signed Patient: RILEY BACON MR#: [id number] : 1980 Acct:[id number] Age/Sex: 40 / F ADM Date: 01/12/21 Loc: ED Attending Dr: Ordering Physician: KIM HERNANDEZ MD Date of Service: 01/12/21 P rocedure(s): XR chest 1V ap Accession Number(s): [id number] cc: KIM HERNANDEZ MD Fluoro Time In Minutes: XR chest 1V ap INDICATION / CLINICAL INFORMATION: Shortness of breath, cough. COMPARISON: 04/01/2020 FINDINGS: SUPPORT DEVICES: None. HEART /PULMONARY VASCULATURE: No significant abnormality. LUNGS / PLEURA: No significant pulmonary or pleural abnormality. No pneumothorax. ADDITIONAL FINDINGS: No significant additional findings. IMPRESSION: 1. No acute findings. Signer Name: Edgar Melendez MD Signed: 01/12/2021 10:13 PM Workstation Name: [id number] Transcribed By: SONJA Dictated By: EGDAR MELENDEZ MD Electronically Authenticated By: EDGAR MELENDEZ MD Signed Date/Time: 01/12/212212 DD/ 11 TD/TT: Print Cancel - Differential Diagnosis Acute asthma exacerbation, bronchitis, pneumonia Critical care attestation.: If time is entered above; I have spent that time in minutes in the direct care of this critically ill patient, excluding procedure time. ED Disposition Clinical Impression: Shortness of breath, Acute asthma exacerbation Disposition: ADMITTED INPATIENT Is pt being admited?: Yes Does the pt Need Aspirin: No Condition: Fair Time of Disposition: 23:32 (Hospitalist notified (Dr. Rand))
[2021-01-12 22:14] LABS: Basophils % (Auto) 0.3 % (0.0-1.8); Eosinophils # (Auto) 0.3 K/mm3 (0.0-0.4); Eosinophils % (Auto) 3.6 % (0.0-4.3); Hematocrit 49.5 % (30.3-42.9); Hemoglobin 16.6 gm/dl (10.1-14.3); Lymphocytes # (Auto) 2.4 K/mm3 (1.2-5.4); Lymphocytes % (Auto) 26.4 % (13.4-35.0); Mean Corpuscular HGB Conc 34 % (30-34); Mean Corpuscular Volume 91 fl (79-97); Monocytes # (Auto) 0.9 K/mm3 (0.0-0.8); Monocytes % (Auto) 9.7 % (0.0-7.3); Platelet Count 251 K/mm3 (140-440); Red Blood Count 5.42 M/mm3 (3.65-5.03); Red Cell Distribution Width 14.1 % (13.2-15.2)
--- NOTE | 2021-01-12 22:17 | XRay Report ---
XR chest 1V ap INDICATION / CLINICAL INFORMATION: Shortness of breath, cough. COMPARISON: 04/01/2020 FINDINGS: SUPPORT DEVICES: None. HEART /PULMONARY VASCULATURE: No significant abnormality. LUNGS / PLEURA: No significant pulmonary or pleural abnormality. No pneumothorax. ADDITIONAL FINDINGS: No significant additional findings. IMPRESSION: 1. No acute findings. Signer Name: Cristo Melendez MD Signed: 01/12/2021 10:13 PM Workstation Name: [id number]
[2021-01-12 22:30] LABS: Blood Urea Nitrogen 6 mg/dL (7-17); Hemolysis Index 14
[2021-01-12 22:31] LABS: BUN/Creatinine Ratio 12
[2021-01-13] MEDS ORDERED: ACETAMINOPHEN 325 MG TAB PO PRN ×2 (02:36→02:50)
[2021-01-13] MEDS ORDERED: oxyCODONE /ACETAMINOPHEN 5-325MG TAB PO PRN (02:50)
[2021-01-13] MEDS ORDERED: ONDANSETRON 4 MG/2 ML INJ IV PRN (02:50)
[2021-01-13] MEDS ORDERED: HYDROmorphone 1 MG/1 ML INJ IV PRN (02:50)
[2021-01-13] MEDS ORDERED: ALBUTEROL 2.5 MG/3 ML NEBU IH PRN (02:50)
--- NOTE | 2021-01-13 02:57 | History and Physical Report ---
History of Present Illness Date of examination: 01/13/21 Date of admission: 01/13/21 02:33 Chief complaint: Shortness of breath Acute asthma exacerbation History of present illness: 40-year-old female with history of hypertension and asthma was brought to the emergency room because of shortness of breath. Patient states for the past 7 days she has had constant shortness of breath with wheezing. The patient states her MDI has not helped. Patient states she has had a dry cough since yesterday. Patient denies history of fever, nausea, vomiting or diarrhea. The patient states she has been vaccinated against Covid receiving her second Pfizer vaccine 07/11/2020 In the emergency room patient is found to have acute asthma exacerbation.Status post neb patient states she feels unchanged. Wheezing has decreased there is more rhonchi present the patient exhibits increased work of breathing still. We will admit the patient to the hospital for further treatment Med rec is done Past History Past Medical History: hypertension, other (Asthma back pain) Medications and Allergies Allergies Allergy/AdvReac Type Severity Reaction Status Date / Time No Known Allergies Allergy Unverified 08/17/13 11:53 Home Medications Medication Instructions Recorded Confirmed Last Taken Type hydroCHLOROthiazide [HCTZ] 25 mg PO QDAY #30 tablet 12/28/18 Unknown Rx lisinopriL [Zestril TAB] 20 mg PO QDAY #30 tablet 12/28/18 Unknown Rx Furosemide [Lasix] 20 mg PO QDAY #4 tablet 05/02/19 Unknown Rx Azithromycin [Zithromax Z-STACY] 250 mg PO DAILY #6 tablet 04/01/20 Unknown Rx hydroCHLOROthiazide [HCTZ] 25 mg PO DAILY #30 tablet 04/02/20 Unknown Rx lisinopriL [Zestril TAB] 20 mg PO QDAY #30 tablet 04/02/20 Unknown Rx Naproxen [Naprosyn] 500 mg PO BID #20 tablet 06/11/20 Unknown Rx Active Meds: Active Medications Acetaminophen (Acetaminophen 325 Mg Tab) 650 mg PO Q6H PRN PRN Reason: Pain, Mild (1-3) Last Admin: 01/13/21 02:47 Dose: 650 mg Documented by: Review of Systems All systems: negative Cardiovascular: shortness of breath, dyspnea on exertion Respiratory: cough, shortness of breath, dyspnea on exertion, wheezing Exam - Constitutional Vitals: Temp Pulse Resp BP Pulse Ox 98.0 F 129 H 27 H 194/113 98 01/12/21 22:56 01/13/21 02:25 01/13/21 02:25 01/13/21 02:25 01/13/21 02:25 General appearance: Present: no acute distress, well-nourished - EENT Eyes: Present: PERRL ENT: hearing intact, clear oral mucosa - Neck Neck: Present: supple, normal ROM - Respiratory Respiratory effort: labored Respiratory: bilateral: wheezing - Cardiovascular Heart Sounds: Present: S1 & S2. Absent: rub, click - Extremities Extremities: pulses symmetrical, No edema Peripheral Pulses: within normal limits - Abdominal General gastrointestinal: Present: soft, non-tender, non-distended, normal bowel sounds Female genitourinary: Present: normal - Integumentary Integumentary: Present: clear, warm, dry - Musculoskeletal Musculoskeletal: gait normal, strength equal bilaterally - Psychiatric Psychiatric: appropriate mood/affect, intact judgment & insight - Neurologic Neurologic: CNII-XII intact, moves all extremities Results - Labs CBC & Chem 7: 01/12/21 21:48 01/12/21 21:48 Labs: Laboratory Last Values WBC 9.2 K/mm3 (4.5-11.0) 01/12/21 21:48 RBC 5.42 M/mm3 (3.65-5.03) H 01/12/21 21:48 Hgb 16.6 gm/dl (10.1-14.3) H 01/12/21 21:48 Hct 49.5 % (30.3-42.9) H 01/12/21 21:48 MCV 91 fl (79-97) 01/12/21 21:48 MCH 31 pg (28-32) 01/12/21 21:48 MCHC 34 % (30-34) 01/12/21 21:48 RDW 14.1 % (13.2-15.2) 01/12/21 21:48 Plt Count 251 K/mm3 (140-440) 01/12/21 21:48 Lymph % (Auto) 26.4 % (13.4-35.0) 01/12/21 21:48 [place] % (Auto) 9.7 % (0.0-7.3) H 01/12/21 21:48 Eos % (Auto) 3.6 % (0.0-4.3) 01/12/21 21:48 Baso % (Auto) 0.3 % (0.0-1.8) 01/12/21 21:48 Lymph # (Auto) 2.4 K/mm3 (1.2-5.4) 01/12/21 21:48 [place] # (Auto) 0.9 K/mm3 (0.0-0.8) H 01/12/21 21:48 Eos # (Auto) 0.3 K/mm3 (0.0-0.4) 01/12/21 21:48 Baso # (Auto) 0.0 K/mm3 (0.0-0.1) 01/12/21 21:48 Seg Neutrophils % 60.0 % (40.0-70.0) 01/12/21 21:48 Seg Neutrophils # 5.5 K/mm3 (1.8-7.7) 01/12/21 21:48 Sodium 139 mmol/L (137-145) 01/12/21 21:48 Potassium 4.2 mmol/L (3.6-5.0) 01/12/21 21:48 Chloride 102.5 mmol/L (98-107) 01/12/21 21:48 Carbon Dioxide 15 mmol/L (22-30) L 01/12/21 21:48 Anion Gap 26 mmol/L 01/12/21 21:48 BUN 6 mg/dL (7-17) L 01/12/21 21:48 Creatinine 0.5 mg/dL (0.6-1.2) L 01/12/21 21:48 Estimated GFR > 60 ml/min 01/12/21 21:48 BUN/Creatinine Ratio 12 % 01/12/21 21:48 Glucose 153 mg/dL (65-100) H 01/12/21 21:48 Calcium 9.0 mg/dL (8.4-10.2) 01/12/21 21:48 Microbiology: Microbiology 01/12/21 21:48 Peripheral/Venous Blood Culture - Preliminary Culture in Progress 01/12/21 21:48 Peripheral/Venous Blood Culture - Preliminary Culture in Progress - Imaging and Cardiology Chest x-ray: report reviewed Assessment and Plan VTE prophylaxis?: Chemical Plan of care discussed with patient/family: Yes - Patient Problems (1) Acute asthma exacerbation Current Visit: Yes Status: Acute Plan to address problem: Admit the patient to the medical floor. Oxygen per nasal cannula 3 L/min. DuoNeb by nebulizer every 4 hours. Albuterol via nebulizer every 4 hours as needed. Solu-Medrol 40 mg IV every 6 hours. Singular 10 mg p.o. daily. Zith romax to 50 mg p.o. daily we will continue the home medication we will monitor the patient closely. If needed will consult pulmonary (2) Shortness of breath Current Visit: Yes Status: Acute Plan to address problem: Oxygen per nasal cannula 3 L/min. DuoNeb by nebulizer every 4 hours. Albuterol via nebulizer every 4 hours as needed. Solu-Medrol 40 mg IV every 6 hours. Singular 10 mg p.o. daily. Zithromax to 50 mg p.o. daily we will continue the home medication we will monitor the patient closely. If needed will consult pulmonary (3) Hypertension Current Visit: Yes Status: Acute Plan to address problem: Hydrochlorothiazide 25 mg p.o. daily. Furosemide 20 mg p.o. daily. We will monitor the blood pressure closely (4) Lumbar paraspinal muscle spasm Current Visit: No Status: Acute Plan to address problem: We will continue the home medication. Tylenol 650 mg p.o. every 6 hours as needed (5) DVT prophylaxis Current Visit: Yes Status: Acute Plan to address problem: Heparin 5000 units subcu every 8 hours for DVT prophylaxis. Pepcid 20 mg p.o. twice daily for GI prophylaxis. Patient is a full code
[2021-01-13] MEDS: hydrALAZINE 20 MG/1 ML INJ IV PRN ×2 (05:16→17:54)
[2021-01-13] MEDS: methylPREDNISolone Sod Succinate 40 MG/1 ML INJ IV SCH ×3 (05:16→17:54)
[2021-01-13] MEDS: HEPARIN 5,000 UNIT/1 ML VIAL SUB-Q SCH ×3 (05:19→21:15)
[2021-01-13] MEDS ORDERED: IPRATROPIUM/ALBUTEROL SULFATE 3 ML AMPUL.NEB IH SCH (08:00)
[2021-01-13] MEDS: BUDESONIDE 0.5 MG/2 ML NEBU IH SCH ×2 (08:45→20:30)
[2021-01-13] MEDS: hydroCHLOROthiazide 25 MG TAB PO SCH (09:47)
[2021-01-13] MEDS: NAPROXEN 500 MG TAB PO SCH ×2 (09:48→21:14)
[2021-01-13] MEDS: FAMOTIDINE 20 MG TAB PO SCH ×2 (09:48→21:15)
[2021-01-13] MEDS: AZITHROMYCIN 250 MG TAB PO SCH (09:48)
[2021-01-13] MEDS ORDERED: LISINOPRIL 20 MG TAB PO SCH (10:00)
[2021-01-13] MEDS ORDERED: FUROSEMIDE 20 MG TAB PO SCH (10:00)
[2021-01-13] MEDS ORDERED: LEVALBUTEROL 0.63 MG/3 ML NEBU IH PRN (12:20)
[2021-01-13] MEDS ORDERED: LEVALBUTEROL 0.63 MG/3 ML NEBU IH ONE (12:20)
--- NOTE | 2021-01-13 12:34 | Progress Note ---
Assessment and Plan Assessment and plan: History of present illness: 40-year-old female with history of hypertension and asthma was brought to the emergency room because of shortness of breath. Patient states for the past 7 days she has had constant shortness of breath with wheezing. The patient states her MDI has not helped. Patient states she has had a dry cough since yesterday. Patient denies history of fever, nausea, vomiting or diarrhea. The patient states she has been vaccinated against Covid receiving her second Pfizer vaccine 07/11/2020 Admitted for acute asthma exacerbation. Hospital Course to date 01/13: Currently on RA but experiencing chest pain with respirations. Lung exam demonstrate scattered wheezes and rhonci. Continue care outlined below for tx of acute asthma exacerbation. Assessment and Plan (1) Acute asthma exacerbation Current Visit: Yes Status: Acute Plan to address problem: Admit the patient to the medical floor. Oxygen per nasal cannula 3 L/min, now on RA. Albuterol changed to levalbuterol due to concerns for beta agonist induced tachycardia. Iptratropium nebulizers Budesonide nebulizers. Solu-Medrol 40 mg IV every 6 hours. Singular 10 mg p.o. daily. Zithromax to 250 mg p.o. daily Will consult pulm if needed. avoid albuterol containing medications (2) Shortness of breath Current Visit: Yes Status: Acute Plan to address problem: Improved Management as above. (2) medication induced tachycardia Current Visit: Yes Status: Acute Plan to address problem: tachycardic likely due to albuterol d/c albuterol, start levalbuterol. (3) Hypertension Current Visit: Yes Status: Acute Plan to address problem: Hydrochlorothiazide 25 mg p.o. daily. Furosemide 20 mg p.o. daily. We will monitor the blood pressure closely (4) Lumbar paraspinal muscle spasm Current Visit: No Status: Acute Plan to address problem: Tylenol 650 mg p.o. every 6 hours as needed (5) Elevated BMI > 30 Current Visit: No Status: Acute Plan to address problem: Counseled on dietary and exercise modification +15 min. (6) DVT prophylaxis Current Visit: Yes Status: Acute Plan to address problem: Heparin 5000 units subcu every 8 hours for DVT prophylaxis. Pepcid 20 mg p.o. twice daily for GI prophylaxis. Patient is a full code (7) Advanced Care Planning Disease education conducted, care plan discussed, diagnoses discussed, prognosis discussed, patient is full code, patient acknowledges understanding and agree with care plan, +30 minutes. History Interval history: Resting, in no distress this AM. patient was on room air. Patient states she is still having some pain with breathing. Still experiencing some chest tightness, albiet improved from yesterday. Hospitalist Physical - Physical exam Narrative exam: Physical Exam: VITAL SIGNS: Reviewed. GENERAL: The patient appears normally developed, Vital signs as documented. Elevated BMI, HEAD: No signs of head trauma. EYES: Pupils are equal. Extraocular motions intact. EARS: Hearing grossly intact. MOUTH: Oropharynx is normal. NECK: No adenopathy, no JVD. CHEST: Chest with expiratory wheezes. CARDIAC: Regular rate and rhythm. S1 and S2, without murmurs, gallops, or rubs. VASCULAR: No Edema. Peripheral pulses normal and equal in all extremities. ABDOMEN: Soft, non tender and non distended. No rebound or guarding, and no masses palpated. Bowel Sounds normal. MUSCULOSKELETAL: Good range of motion of all major joints. Extremities without clubbing, cyanosis or edema. NEUROLOGIC EXAM: Alert and oriented x 4. no focal sensory or strength deficits. PSYCHIATRIC: Mood normal. SKIN: detail exam as documented in skin assessment - Constitutional Vitals: Temp Pulse Resp BP Pulse Ox 97.1 F L 106 H 20 135/93 91 01/13/21 08:47 01/13/21 08:47 01/13/21 08:47 01/13/21 08:47 01/13/21 08:47 General appearance: Present: no acute distress, well-nourished Results - Labs CBC & Chem 7: 01/12/21 21:48 01/12/21 21:48 Labs: Laboratory Last Values WBC 9.2 K/mm3 (4.5-11.0) 01/12/21 21:48 RBC 5.42 M/mm3 (3.65-5.03) H 01/12/21 21:48 Hgb 16.6 gm/dl (10.1-14.3) H 01/12/21 21:48 Hct 49.5 % (30.3-42.9) H 01/12/21 21:48 MCV 91 fl (79-97) 01/12/21 21:48 MCH 31 pg (28-32) 01/12/21 21:48 MCHC 34 % (30-34) 01/12/21 21:48 RDW 14.1 % (13.2-15.2) 01/12/21 21:48 Plt Count 251 K/mm3 (140-440) 01/12/21 21:48 Lymph % (Auto) 26.4 % (13.4-35.0) 01/12/21 21:48 [place] % (Auto) 9.7 % (0.0-7.3) H 01/12/21 21:48 Eos % (Auto) 3.6 % (0.0-4.3) 01/12/21 21:48 Baso % (Auto) 0.3 % (0.0-1.8) 01/12/21 21:48 Lymph # (Auto) 2.4 K/mm3 (1.2-5.4) 01/12/21 21:48 [place] # (Auto) 0.9 K/mm3 (0.0-0.8) H 01/12/21 21:48 Eos # (Auto) 0.3 K/mm3 (0.0-0.4) 01/12/21 21:48 Baso # (Auto) 0.0 K/mm3 (0.0-0.1) 01/12/21 21:48 Seg Neutrophils % 60.0 % (40.0-70.0) 01/12/21 21:48 Seg Neutrophils # 5.5 K/mm3 (1.8-7.7) 01/12/21 21:48 Sodium 139 mmol/L (137-145) 01/12/21 21:48 Potassium 4.2 mmol/L (3.6-5.0) 01/12/21 21:48 Chloride 102.5 mmol/L (98-107) 01/12/21 21:48 Carbon Dioxide 15 mmol/L (22-30) L 01/12/21 21:48 Anion Gap 26 mmol/L 01/12/21 21:48 BUN 6 mg/dL (7-17) L 01/12/21 21:48 Creatinine 0.5 mg/dL (0.6-1.2) L 01/12/21 21:48 Estimated GFR > 60 ml/min 01/12/21 21:48 BUN/Creatinine Ratio 12 % 01/12/21 21:48 Glucose 153 mg/dL (65-100) H 01/12/21 21:48 Calcium 9.0 mg/dL (8.4-10.2) 01/12/21 21:48 Microbiology: Microbiology 01/12/21 21:48 Peripheral/Venous Blood Culture - Preliminary Culture in Progress 01/12/21 21:48 Peripheral/Venous Blood Culture - Preliminary Culture in Progress Olivier/IV: Voiding Method Toilet Active Medications - Current Medications Current Medications: Generic Name Dose Route Start Last Admin Trade Name Freq PRN Reason Stop Dose Admin Acetaminophen 650 mg 01/13/21 02:50 Acetaminophen 325 Mg Tab PO Q4H PRN Pain MILD(1-3)/Fever >100.5/DIAZ Amlodipine Besylate 5 mg 01/13/21 13:00 Amlodipine 5 Mg Tab PO QDAY CHIKI Azithromycin 250 mg 01/13/21 10:00 01/13/21 09:48 Azithromycin 250 Mg Tab PO 250 mg DAILY CHIKI Administration Protocol Budesonide 0.5 mg 01/13/21 08:30 01/13/21 08:45 Budesonide 0.5 Mg/2 Ml Nebu IH 0.5 mg Q12HRT CHIKI Administration Famotidine 20 mg 01/13/21 10:00 01/13/21 09:48 Famotidine 20 Mg Tab PO 20 mg BID CHIKI Administration Heparin Sodium (Porcine) 5,000 unit 01/13/21 06:00 01/13/21 05:19 Heparin 5,000 Unit/1 Ml Vial SUB-Q 5,000 unit Q8HR CHIKI Administration Hydralazine HCl 10 mg 01/13/21 05:08 01/13/21 05:16 Hydralazine 20 Mg/1 Ml Inj IV 10 mg Q6HR PRN Administration Hypertension Hydrochlorothiazide 25 mg 01/13/21 10:00 01/13/21 09:47 Hydrochlorothiazide 25 Mg Tab PO 25 mg DAILY CHIKI Administration Hydromorphone HCl 0.5 mg 01/13/21 02:50 Hydromorphone 1 Mg/1 Ml Inj IV Q3H PRN Pain , Severe (7-10) Ipratropium [place] 0.5 mg 01/13/21 14:00 Ipratropium 0.02% Nebu 2.5 Ml IH Q6HRT CHIKI Levalbuterol HCl 0.63 mg 01/13/21 12:20 Levalbuterol 0.63 Mg/3 Ml Nebu IH 01/13/21 12:21 ONCE ONE Levalbuterol HCl 0.63 mg 01/13/21 12:20 Levalbuterol 0.63 Mg/3 Ml Nebu IH Q8HRT PRN Shortness Of Breath Methylprednisolone Sodium Succinate 40 mg 01/13/21 06:00 01/13/21 11:46 Methylprednisolone Sod Succinate 40 Mg/1 Ml Inj IV 40 mg Q6HR CHIKI Administration Montelukast Sodium 10 mg 01/13/21 22:00 Montelukast 10 Mg Tab PO QHS CHIKI Naproxen 500 mg 01/13/21 10:00 01/13/21 09:48 Naproxen 500 Mg Tab PO 500 mg BID CHIKI Administration Ondansetron HCl 4 mg 01/13/21 02:50 Ondansetron 4 Mg/2 Ml Inj IV Q8H PRN Nausea And Vomiting Oxycodone/Acetaminophen 1 tab 01/13/21 02:50 01/13/21 05:17 Oxycodone /Acetaminophen 5-325mg Tab PO 1 tab Q6H PRN Administration Pain, Moderate (4-6) Sodium Chloride 10 ml 01/13/21 10:00 01/13/21 09:49 Sodium Chloride 0.9% 10 Ml Flush Syringe IV 10 ml BID CHIKI Administration Sodium Chloride 10 ml 01/13/21 02:50 Sodium Chloride 0.9% 10 Ml Flush Syringe IV PRN PRN LINE FLUSH
[2021-01-13] MEDS: amLODIPine 5 MG TAB PO SCH (14:18)
[2021-01-13] MEDS: IPRATROPIUM 0.02% NEBU 2.5 ML IH SCH ×2 (14:21→20:30)
[2021-01-13] MEDS ORDERED: MONTELUKAST 10 MG TAB PO SCH (22:00)
[2021-01-14] MEDS: methylPREDNISolone Sod Succinate 40 MG/1 ML INJ IV SCH ×3 (01:19→13:14)
[2021-01-14] MEDS: IPRATROPIUM 0.02% NEBU 2.5 ML IH SCH ×2 (02:55→08:23)
[2021-01-14 04:52] LABS: Hematocrit 45.6 % (30.3-42.9); Hemoglobin 14.9 gm/dl (10.1-14.3); Mean Corpuscular HGB Conc 33 % (30-34); Mean Corpuscular Volume 92 fl (79-97); Platelet Count 242 K/mm3 (140-440); Red Blood Count 4.94 M/mm3 (3.65-5.03); Red Cell Distribution Width 14.5 % (13.2-15.2)
[2021-01-14 05:10] LABS: Blood Urea Nitrogen 11 mg/dL (7-17); Calcium 9.3 mg/dL (8.4-10.2); Hemolysis Index 12
[2021-01-14 05:27] LABS: BUN/Creatinine Ratio 18
[2021-01-14] MEDS: HEPARIN 5,000 UNIT/1 ML VIAL SUB-Q SCH ×2 (05:42→13:14)
[2021-01-14 06:04] LABS: Band Neutrophils # (Manual) 3.1 K/mm3; Total Cells Counted 100
[2021-01-14 06:05] LABS: Platelet Estimate Consistent w Auto; RBC Morphology Normal
--- NOTE | 2021-01-14 07:48 | Discharge Summary ---
Providers - Providers Date of Admission: 01/13/21 02:33 Date of discharge: 01/14/21 Attending physician: ERLIN PARHAM MD Primary care physician: [employer] Hospitalization Reason for admission: Shortness of breath Condition: Fair Hospital course: History of present illness: 40-year-old female with history of hypertension and asthma was brought to the emergency room because of shortness of breath. Patient states for the past 7 days she has had constant shortness of breath with wheezing. The patient states her MDI has not helped. Patient states she has had a dry cough since yesterday. Patient denies history of fever, nausea, vomiting or diarrhea. The patient states she has been vaccinated against Covid receiving her second Pfizer vaccine 07/11/2020 Admitted for acute asthma exacerbation. Hospital Course to date 01/13: Currently on RA but experiencing chest pain with respirations. Lung exam demonstrate scattered wheezes and rhonci. Continue care outlined below for tx of acute asthma exacerbation. 01/14: Breathing has significantly improved as has patient's lung exam. Breathing comfortably on room air at the time of evaluation. Will discharge patient today. She will be sent home with prescriptions for steroid taper, ProAir HFA inhaler, Advair discus 250-50 mcg 1 puff inhaled twice daily, Pulmicort 90 mcg inhaler daily, amlodipine 5 mg p.o. daily, hydrochlorothiazide 25 mg p.o. daily. She was advised to follow-up with a primary care doctor GAMAL. She was also advised to establish with a pulmonary physician for continued management of her asthma. Contact information was given on discharge. Assessment and Plan (1) Acute asthma exacerbation Current Visit: Yes Status: Acute Plan to address problem: Admit the patient to the medical floor. Oxygen per nasal cannula 3 L/min, now on RA. Albuterol changed to levalbuterol due to concerns for beta agonist induced tachycardia. Iptratropium nebulizers Budesonide nebulizers. Solu-Medrol 40 mg IV every 6 hours. Singular 10 mg p.o. daily. Zithromax to 250 mg p.o. daily Will consult pulm if needed. avoid albuterol containing medications (2) Shortness of breath Current Visit: Yes Status: Acute Plan to address problem: Improved Management as above. (2) medication induced tachycardia Current Visit: Yes Status: Acute Plan to address problem: tachycardic likely due to albuterol d/c albuterol, start levalbuterol. (3) Hypertension Current Visit: Yes Status: Acute Plan to address problem: Hydrochlorothiazide 25 mg p.o. daily. Furosemide 20 mg p.o. daily. We will monitor the blood pressure closely (4) Lumbar paraspinal muscle spasm Current Visit: No Status: Acute Plan to address problem: Tylenol 650 mg p.o. every 6 hours as needed (5) Elevated BMI > 30 Current Visit: No Status: Acute Plan to address problem: Counseled on dietary and exercise modification +15 min. (6) DVT prophylaxis Current Visit: Yes Status: Acute Plan to address problem: Heparin 5000 units subcu every 8 hours for DVT prophylaxis. Pepcid 20 mg p.o. twice daily for GI prophylaxis. Patient is a full code (7) Advanced Care Planning Disease education conducted, care plan discussed, diagnoses discussed, prognosis discussed, patient is full code, patient acknowledges understanding and agree with care plan, +30 minutes. Disposition: 01 HOME / SELF CARE / HOMELESS Final Discharge Diagnosis (Prints w/discharge instructions): Acute asthma exacerbation Time spent for discharge: 35 - Discharge Diagnoses (1) Acute asthma exacerbation Status: Acute (2) Hypertension Status: Acute (3) Shortness of breath Status: Acute (4) Lumbar paraspinal muscle spasm Status: Acute Core Measure Documentation - Palliative Care Palliative Care/ Comfort Measures: Not Applicable - Core Measures Any of the following diagnoses?: none Exam - Constitutional Vitals: Temp Pulse Resp BP Pulse Ox 97.7 F 93 H 18 131/78 96 01/14/21 00:10 01/14/21 06:00 01/14/21 02:56 01/14/21 00:10 01/14/21 00:10 Plan Follow up with: PRIMARY CARE, [Primary Care Provider] - 7 Days JARRETT MONTAÑO MD [Staff Physician] - 7 Days Prescriptions: Fluticasone/Salmeterol [Advair Diskus 250-50 mcg] 1 puff IH BID 30 Days #1 disk.w.dev amLODIPine 5 mg PO QDAY 30 Days #30 tablet hydroCHLOROthiazide [HCTZ] 25 mg PO DAILY 30 Days #30 tablet Albuterol Mdi (or & Nicu Only) [ProAir HFA Inhaler] 1 puff IH QID PRN 30 Days #1 inhalation PRN Reason: Shortness Of Breath Azithromycin [Zithromax TAB] 250 mg PO DAILY 3 Days #3 tablet
[2021-01-14] MEDS: BUDESONIDE 0.5 MG/2 ML NEBU IH SCH (08:23)
[2021-01-14] MEDS: AZITHROMYCIN 250 MG TAB PO SCH (09:25)
[2021-01-14] MEDS: NAPROXEN 500 MG TAB PO SCH (09:25)
[2021-01-14] MEDS: amLODIPine 5 MG TAB PO SCH (09:26)
[2021-01-14] MEDS: hydroCHLOROthiazide 25 MG TAB PO SCH (09:27)
[2021-01-14] MEDS: FAMOTIDINE 20 MG TAB PO SCH (09:27)
[2021-01-14 13:25] VITALS: BP 129/76
[2021-01-14] MEDS ORDERED: IPRATROPIUM 0.02% NEBU 2.5 ML IH SCH (14:00)
[2021-01-14] MEDS ORDERED: LEVALBUTEROL 0.63 MG/3 ML NEBU IH SCH (14:00)
[2021-01-14] MEDS ORDERED: ARFORMOTEROL 15 MCG/2 ML NEBU IH SCH (20:00)
[2021-01-14] MEDS ORDERED: BUDESONIDE 0.5 MG/2 ML NEBU IH SCH (20:00)
== END 2021-01-14 13:55 | disposition home or self-care (01) ==
LOC: ED 20:59 → INTOOBSV 01-13 02:33 → 4A 01-13 02:33
PROVIDERS: ADMIT Hospitalist; ATTEND Internal Medicine
DX: J45.901 Unspecified asthma with (acute) exacerbation (principal); I10 Essential (primary) hypertension; M62.830 Muscle spasm of back; R00.0 Tachycardia, unspecified; Z90.49 Acquired absence of other specified parts of digestive tract; Z79.899 Other long term (current) drug therapy; Z98.890 Other specified postprocedural states; Z87.891 Personal history of nicotine dependence; Z68.33 Body mass index [BMI] 33.0-33.9, adult
CPT/HCPCS: 36415; 71045; 80048; 85025; 87040; 87641; 94640; 94644; 96365; 96366; 96372; 96375; 96376; 99284; G0378; J0360; J1644; J2920; J2930; J3475; J7030; 85007; Q0162

== ENCOUNTER 2021-02-13 13:32 | Inpatient (IN) | payer OTHER, SELFPAY ==
[2021-02-13] MEDS ORDERED: ACETAMINOPHEN 500 MG TAB PO STA (14:24)
--- NOTE | 2021-02-13 14:59 | XRay Report ---
CHEST 2 VIEWS INDICATION / CLINICAL INFORMATION: SOB, fever. COMPARISON: 01/12/2021 FINDINGS: SUPPORT DEVICES: None. HEART / MEDIASTINUM: No significant abnormality. LUNGS / PLEURA: No significant pulmonary or pleural abnormality. No pneumothorax. ADDITIONAL FINDINGS: No significant additional findings. IMPRESSION: 1. No acute findings. Signer Name: Kenan Fernandez MD Signed: 02/13/2021 2:55 PM Workstation Name: [id number]
--- NOTE | 2021-02-13 15:49 | Emergency Department Report ---
ED General Adult HPI - General Chief complaint: Dyspnea/Respdistress Stated complaint: CANDIDA DIAZ Time Seen by Provider: 02/13/21 15:08 Source: patient Mode of arrival: Ambulatory Limitations: No Limitations - History of Present Illness Initial comments: 40-year-old -Indian female patient presents with complaints of shortness of breath x1 week worsening over the past few days. Patient has a history of asthma and hypertension. She was admitted 01/12/2021 for asthma exacerbation. Patient states she is compliant with her home inhalers and that the are not helping. He admits to cough and body aches and chills. She denies any hemoptysis, recent long travel, history of DVT/PE/cancer, leg pain/swelling, or hormone use. She denies history of being intubated for asthma. Patient is vaccinated against COVID-19 and denies any loss of taste or smell. She has not had the booster shot per patient Severity scale (0 -10): 10 - Related Data Previous Rx's Medication Instructions Recorded Last Taken Type lisinopriL [Zestril TAB] 20 mg PO QDAY #30 tablet 12/28/18 01/12/21 Rx Albuterol Mdi (or & Nicu Only) 1 puff IH QID PRN 30 Days #1 01/14/21 Unknown Rx [ProAir HFA Inhaler] inhalation Azithromycin [Zithromax TAB] 250 mg PO DAILY 3 Days #3 tablet 01/14/21 Unknown Rx Budesonide [Pulmicort Flexhaler] 90 mcg IH DAILY 30 Days #1 01/14/21 Unknown Rx inhalation Fluticasone/Salmeterol [Advair 1 puff IH BID 30 Days #1 disk.w.dev 01/14/21 Unknown Rx Diskus 250-50 mcg] amLODIPine 5 mg PO QDAY 30 Days #30 tablet 01/14/21 Unknown Rx hydroCHLOROthiazide [HCTZ] 25 mg PO DAILY 30 Days #30 tablet 01/14/21 Unknown Rx Azithromycin [Zithromax Z-STACY] 0 mg PO DAILY #6 tab 02/13/21 Unknown Rx Prednisone [predniSONE 10 mg 10 mg PO .TAPER #1 tab.ds.pk 02/13/21 Unknown Rx (6-Day Pack, 21 Tabs)] Allergies Allergy/AdvReac Type Severity Reaction Status Date / Time No Known Allergies Allergy Unverified 08/17/13 11:53 ED Review of Systems ROS: Stated complaint: DIAZ, SOB Other details as noted in HPI Constitutional: chills. denies: diaphoresis, fever, weakness ENT: denies: throat pain Respiratory: cough, shortness of breath, wheezing Cardiovascular: denies: chest pain, palpitations, edema, syncope Gastrointestinal: denies: abdominal pain, nausea, vomiting Skin: denies: change in color Neurological: denies: headache Hematological/Lymphatic: denies: swollen glands ED Past Medical Hx - Past Medical History Hx Hypertension: Yes Hx Asthma: Yes Additional medical history: back pain - Surgical History Hx Cholecystectomy: Yes Additional Surgical History: tonsillectomy 2001 - Social History Smoking Status: Former Smoker - Medications Home Medications: Home Medications Medication Instructions Recorded Confirmed Last Taken Type lisinopriL [Zestril TAB] 20 mg PO QDAY #30 tablet 12/28/18 01/13/21 01/12/21 Rx Albuterol Mdi (or & Nicu Only) 1 puff IH QID PRN 30 Days #1 01/14/21 Unknown Rx [ProAir HFA Inhaler] inhalation Azithromycin [Zithromax TAB] 250 mg PO DAILY 3 Days #3 tablet 01/14/21 Unknown Rx Budesonide [Pulmicort Flexhaler] 90 mcg IH DAILY 30 Days #1 01/14/21 Unknown Rx inhalation Fluticasone/Salmeterol [Advair 1 puff IH BID 30 Days #1 disk.w.dev 01/14/21 Unk nown Rx Diskus 250-50 mcg] amLODIPine 5 mg PO QDAY 30 Days #30 tablet 01/14/21 Unknown Rx hydroCHLOROthiazide [HCTZ] 25 mg PO DAILY 30 Days #30 tablet 01/14/21 Unknown Rx Azithromycin [Zithromax Z-STACY] 0 mg PO DAILY #6 tab 02/13/21 Unknown Rx Prednisone [predniSONE 10 mg 10 mg PO .TAPER #1 tab.ds.pk 02/13/21 Unknown Rx (6-Day Pack, 21 Tabs)] ED Physical Exam - General Limitations: No Limitations General appearance: alert, in no apparent distress - Head Head exam: Present: atraumatic, normocephalic - Eye Eye exam: Present: normal appearance. Absent: scleral icterus - Neck Neck exam: Present: normal inspection - Respiratory Respiratory exam: Present: rales, other (Increased work of breathing). Absent: wheezes, rhonchi, stridor - Cardiovascular Cardiovascular Exam: Present: normal rhythm, tachycardia - Extremities Exam Extremities exam: Absent: calf tenderness (No pain or swelling noted to legs bilaterally) - Neurological Exam Neurological exam: Present: alert, oriented X3, normal gait - Psychiatric Psychiatric exam: Present: normal affect, normal mood - Skin Skin exam: Present: warm, dry, intact, normal color. Absent: rash ED Course Vital Signs 02/13/21 02/13/21 02/13/21 13:36 17:50 17:53 Temperature 100.5 F H 98.4 F 98.4 F Pulse Rate 119 H 93 H Pulse Rate [ Anterior Bilateral Throughout] Respiratory 24 18 Rate Respiratory Rate [Anterior Bilateral Throughout] Blood Pressure 162/96 124/91 [Right] O2 Sat by Pulse 96 98 Oximetry 02/13/21 18:05 Temperature Pulse Rate Pulse Rate [ 92 H Anterior Bilateral Throughout] Respiratory Rate Respiratory 24 Rate [Anterior Bilateral Throughout] Blood Pressure [Right] O2 Sat by Pulse Oximetry ED Medical Decision Making - Lab Data Result diagrams: 02/13/21 15:52 02/13/21 15:52 Lab Results 02/13/21 02/13/21 02/13/21 Range/Units 15:52 15:52 15:52 WBC 4.2 L (4.5-11.0) K/mm3 RBC 4.96 (3.65-5.03) M/mm3 Hgb 14.8 H (10.1-14.3) gm/dl Hct 44.9 H (30.3-42.9) % MCV 90 (79-97) fl MCH 30 (28-32) pg MCHC 33 (30-34) % RDW 14.7 (13.2-15.2) % Plt Count 177 (140-440) K/mm3 Lymph % (Auto) 20.7 (13.4-35.0) % [place] % (Auto) 16.0 H (0.0-7.3) % Eos % (Auto) 1.3 (0.0-4.3) % Baso % (Auto) 0.8 (0.0-1.8) % Lymph # (Auto) 0.9 L (1.2-5.4) K/mm3 [place] # (Auto) 0.7 (0.0-0.8) K/mm3 Eos # (Auto) 0.1 (0.0-0.4) K/mm3 Baso # (Auto) 0.0 (0.0-0.1) K/mm3 Seg Neutrophils % 61.2 (40.0-70.0) % Seg Neutrophils # 2.6 (1.8-7.7) K/mm3 D-Dimer 211.76 (0-234) ng/mlDDU Sodium 136 L (137-145) mmol/L Potassium 3.9 (3.6-5.0) mmol/L Chloride 102.5 (98-107) mmol/L Carbon Dioxide 17 L (22-30) mmol/L Anion Gap 20 mmol/L BUN 9 (7-17) mg/dL Creatinine 0.6 (0.6-1.2) mg/dL Estimated GFR > 60 ml/min BUN/Creatinine Ratio 15 % Glucose 101 H (65-100) mg/dL Calcium 9.1 (8.4-10.2) mg/dL Total Bilirubin 0.30 (0.1-1.2) mg/dL AST 290 H (5-40) units/L ALT 131 H (7-56) units/L Alkaline Phosphatase 97 (35-129) units/L NT-Pro-B Natriuret Pep (0-450) pg/mL Total Protein 7.6 (6.3-8.2) g/dL Albumin 4.1 (3.9-5) g/dL Albumin/Globulin Ratio 1.2 % 02/13/21 Range/Units 15:52 WBC (4.5-11.0) K/mm3 RBC (3.65-5.03) M/mm3 Hgb (10.1-14.3) gm/dl Hct (30.3-42.9) % MCV (79-97) fl MCH (28-32) pg MCHC (30-34) % RDW (13.2-15.2) % Plt Count (140-440) K/mm3 Lymph % (Auto) (13.4-35.0) % [place] % (Auto) (0.0-7.3) % Eos % (Auto) (0.0-4.3) % Baso % (Auto) (0.0-1.8) % Lymph # (Auto) (1.2-5.4) K/mm3 [place] # (Auto) (0.0-0.8) K/mm3 Eos # (Auto) (0.0-0.4) K/mm3 Baso # (Auto) (0.0-0.1) K/mm3 Seg Neutrophils % (40.0-70.0) % Seg Neutrophils # (1.8-7.7) K/mm3 D-Dimer (0-234) ng/mlDDU Sodium (137-145) mmol/L Potassium (3.6-5.0) mmol/L Chloride (98-107) mmol/L Carbon Dioxide (22-30) mmol/L Anion Gap mmol/L BUN (7-17) mg/dL Creatinine (0.6-1.2) mg/dL Estimated GFR ml/min BUN/Creatinine Ratio % Glucose (65-100) mg/dL Calcium (8.4-10.2) mg/dL Total Bilirubin (0.1-1.2) mg/dL AST (5-40) units/L ALT (7-56) units/L Alkaline Phosphatase (35-129) units/L NT-Pro-B Natriuret Pep 77.16 (0-450) pg/mL Total Protein (6.3-8.2) g/dL Albumin (3.9-5) g/dL Albumin/Globulin Ratio % - Radiology Data Radiology results: report reviewed CHEST 2 VIEWS INDICATION / CLINICAL INFORMATION: SOB, fever. COMPARISON: 01/12/2021 FINDINGS: SUPPORT DEVICES: None. HEART / MEDIASTINUM: No significant abnormality. LUNGS / PLEURA: No significant pulmonary or pleural abnormality. No pneumothorax. ADDITIONAL FINDINGS: No significant additional findings. IMPRESSION: 1. No acute findings. - Medical Decision Making 40-year-old -Indian female patient presents with complaints of shortness of breath x1 week worsening over the past few days. Patient has a history of asthma and hypertension. She was admitted 01/12/2021 for asthma exacerbation. Patient states she is compliant with her home inhalers and that the are not helping. He admits to cough and body aches and chills. She denies any hemoptysis, recent long travel, history of DVT/PE/cancer, leg pain/swelling, or hormone use. She denies history of being intubated for asthma. Patient is vaccinated against COVID-19 and denies any loss of taste or smell. She has not had the booster shot per patient Patient ambulated by this provider and pulse ox remained greater than 95% on room air despite patient feeling winded and short of breath with ambulation. Mildly decreased white count noted on CBC. Chest x-ray is negative for any acute abnormalities, however crackles are noted on lung exam without wheezing. Dimer is negative. Patient initially febrile upon arrival to the ED at 100.5, temp now normal. Patient given continuous DuoNeb and Decadron. Patient states shortness of breath has significantly improved. Mag sulfate also given. She diaz s decreased work of breathing on exam. CMP shows elevated liver enzymes which were normal on her labs in 2019. Patient admits to heavy alcohol intake and denies any Tylenol usage. Discussed lab findings and importance of refraining from alcohol or Tylenol use. Patient to follow-up with either primary care doctor or GI specialist, referral given. Discussed follow-up within 3 to 5 days. Patient also to have COVID-19 testing performed within 24 to 48 hours in self quarantine until she is further instructed. Patient is well-appearing, her vitals are within normal limits, she is stable for discharge home. Discussed in great detail signs and symptoms that should prompt immediate return to the ED with patient who verbalizes understanding. Critical care attestation.: If time is entered above; I have spent that time in minutes in the direct care of this critically ill patient, excluding procedure time. ED Disposition Clinical Impression: Asthma exacerbation, Suspected COVID-19 virus infection, Abnormal liver functio n tests Disposition: 01 HOME / SELF CARE / HOMELESS Is pt being admited?: No Condition: Stable Instructions: Alcoholic Liver Disease, [id number], Asthma, Adult, Prevent the Spread of COVID-19 if You Are Sick - [facility] Additional Instructions: Please get COVID-19 testing within the next 24 to 48 hours. If you develop new or worsening symptoms seek immediate emergency treatment. Please follow-up with your primary care doctor or a plastic tool maker for further evaluation of your abnormal liver enzyme Prescriptions: Prednisone [predniSONE 10 mg (6-Day Pack, 21 Tabs)] 10 mg PO .TAPER #1 tab.ds.pk Azithromycin [Zithromax Z-STACY] 0 mg PO DAILY #6 tab Referrals: [facility] [Provider Group] - 3-5 Days [facility] [Provider Group] - 3-5 Days PRIMARY CARE, [Primary Care Provider] - 3-5 Days Forms: Work/School Release Form(ED)
[2021-02-13 16:15] LABS: Basophils % (Auto) 0.8 % (0.0-1.8); Eosinophils # (Auto) 0.1 K/mm3 (0.0-0.4); Eosinophils % (Auto) 1.3 % (0.0-4.3); Hematocrit 44.9 % (30.3-42.9); Hemoglobin 14.8 gm/dl (10.1-14.3); Lymphocytes # (Auto) 0.9 K/mm3 (1.2-5.4); Lymphocytes % (Auto) 20.7 % (13.4-35.0); Mean Corpuscular HGB Conc 33 % (30-34); Mean Corpuscular Volume 90 fl (79-97); Monocytes # (Auto) 0.7 K/mm3 (0.0-0.8); Platelet Count 177 K/mm3 (140-440); Red Blood Count 4.96 M/mm3 (3.65-5.03); Red Cell Distribution Width 14.7 % (13.2-15.2)
[2021-02-13 16:30] LABS: Alanine Aminotransferase 131 units/L (7-56); Albumin 4.1 g/dL (3.9-5); Blood Urea Nitrogen 9 mg/dL (7-17); Calcium 9.1 mg/dL (8.4-10.2); Hemolysis Index 10
[2021-02-13] MEDS ORDERED: IPRATROPIUM 0.02% NEBU 2.5 ML IH ONE (16:36)
[2021-02-13] MEDS ORDERED: dexAMETHasone 20 MG/5 ML VIAL IV ONE (16:36)
[2021-02-13] MEDS ORDERED: ALBUTEROL 2.5 MG/3 ML NEBU IH ONE (16:36)
[2021-02-13 16:38] LABS: BUN/Creatinine Ratio 15
[2021-02-13] MEDS ORDERED: SODIUM CHLORIDE 0.9% 1000 ML 1,000 ML IV ONE (19:43)
[2021-02-13] MEDS ORDERED: MAGNESIUM SULFATE 2 GM/50 ML BAG IV ONE (19:49)
[2021-02-13] MEDS ORDERED: LEVALBUTEROL 0.63 MG/3 ML NEBU IH ONE (22:29)
[2021-02-13] MEDS ORDERED: cefTRIAXone/NS 1 GM/50 ML 1 GM/50 ML BAG IV ONE (22:57)
[2021-02-13] MEDS ORDERED: AZITHROMYCIN/NS 500 MG/250 ML 500 MG/250 ML BAG IV ONE (22:57)
[2021-02-14] MEDS ORDERED: ACETAMINOPHEN 325 MG TAB PO PRN
[2021-02-14] MEDS ORDERED: MAGNESIUM HYDROXIDE (MOM) ORAL LIQD UDC PO PRN
[2021-02-14] MEDS ORDERED: MORPHINE 2 MG/1 ML INJ IV PRN
[2021-02-14] MEDS ORDERED: ONDANSETRON 4 MG/2 ML INJ IV PRN
[2021-02-14] MEDS ORDERED: SODIUM CHLORIDE 0.9% 1000 ML 1,000 ML IV SCH
[2021-02-14] MEDS ORDERED: MORPHINE 4 MG/1 ML INJ IV PRN
[2021-02-14] MEDS ORDERED: ALBUTEROL 2.5 MG/3 ML NEBU IH PRN
--- NOTE | 2021-02-14 00:11 | History and Physical Report ---
History of Present Illness Date of examination: 02/14/21 Date of admission: 02/14/21 Chief complaint: Shortness of breath History of present illness: 40-year-old female with known history of hypertension and asthma presenting to the emergency room today complaining of shortness of breath which has been ongoing for the past 1 week. Shortness of breath has gotten worse over the past few days and decided to report to the emergency room. She has been using her in halers without any significant improvement. Patient has had generalized body aches and pain, cough which is nonproductive. Patient denies any fever or chills, no nausea vomiting, no diarrhea and no a bdominal pain. She denies been intubated in the past. Patient denies any sick contacts and no recent travel. Denies any contact with anyone with COVID-19. She has been fully vaccinated against COVID-19. However she has not had a booster shots. During the course of her stay in the emergency room she became tachypneic and had diffuse wheezing. Work-up in the emergency room today, chest x-ray shows no acute findings. Labs were unremarkable. Past History Past Medical History: hypertension, other (, Chronic back pain) Past Surgical History: cholecystectomy, Other (Tonsillectomy) Social history: smoking (Former smoker) Family history: no significant family history Medications and Allergies Allergies Allergy/AdvReac Type Severity Reaction Status Date / Time No Known Allergies Allergy Unverified 08/17/13 11:53 Home Medications Medication Instructions Recorded Confirmed Last Taken Type lisinopriL [Zestril TAB] 20 mg PO QDAY #30 tablet 12/28/18 01/13/21 01/12/21 Rx Albuterol Mdi (or & Nicu Only) 1 puff IH QID PRN 30 Days #1 01/14/21 Unknown Rx [ProAir HFA Inhaler] inhalation Azithromycin [Zithromax TAB] 250 mg PO DAILY 3 Days #3 tablet 01/14/21 Unknown Rx Budesonide [Pulmicort Flexhaler] 90 mcg IH DAILY 30 Days #1 01/14/21 Unknown Rx inhalation Fluticasone/Salmeterol [Advair 1 puff IH BID 30 Days #1 disk.w.dev 01/14/21 Unknown Rx Diskus 250-50 mcg] amLODIPine 5 mg PO QDAY 30 Days #30 tablet 01/14/21 Unknown Rx hydroCHLOROthiazide [HCTZ] 25 mg PO DAILY 30 Days #30 tablet 01/14/21 Unknown Rx Azithromycin [Zithromax Z-STACY] 0 mg PO DAILY #6 tab 02/13/21 Unknown Rx Montelukast [Singulair] 10 mg PO QPM #30 tablet 02/13/21 Unknown Rx Prednisone [predniSONE 10 mg 10 mg PO .TAPER #1 tab.ds.pk 02/13/21 Unknown Rx (6-Day Pack, 21 Tabs)] Active Meds: Active Medications Acetaminophen (Acetaminophen 325 Mg Tab) 650 mg PO Q4H PRN PRN Reason: Pain MILD(1-3)/Fever >100.5/DIAZ Albuterol (Albuterol 2.5 Mg/3 Ml Nebu) 2.5 mg IH Q4HRT PRN PRN Reason: Shortness Of Breath Albuterol/Ipratropium (Ipratropium/Albuterol Sulfate 3 Ml Ampul.Neb) 1 ampul IH Q6HRT CHIKI Heparin Sodium (Porcine) (Heparin 5,000 Unit/1 Ml Vial) 5,000 unit SUB-Q Q8HR CHIKI Sodium Chloride (Nacl 0.9% 1000 Ml) 1,000 mls @ 75 mls/hr IV DIRECT CHIKI Ceftriaxone Sodium (Rocephin/Ns 2 Gm/100 Ml) 2 gm in 100 mls @ 200 mls/hr IV Q24H CHIKI; Protocol Azithromycin (Zithromax/Ns) 500 mg in 250 mls @ 250 mls/hr IV Q24H CHIKI; Protocol Magnesium Hydroxide (Magnesium Hydroxide (Mom) Oral Liqd Udc) 30 ml PO Q4H PRN PRN Reason: Constipation Methylprednisolone Sodium Succinate (Methylprednisolone Sod Succinate 40 Mg/1 Ml Inj) 40 mg IV Q8HR CHIKI Morphine Sulfate (Morphine 2 Mg/1 Ml Inj) 2 mg IV Q4H PRN PRN Reason: Pain, Moderate (4-6) Morphine Sulfate (Morphine 4 Mg/1 Ml Inj) 4 mg IV Q4H PRN PRN Reason: Pain , Severe (7-10) Ondansetron HCl (Ondansetron 4 Mg/2 Ml Inj) 4 mg IV Q8H PRN PRN Reason: Nausea And Vomiting Sodium Chloride (Sodium Chloride 0.9% 10 Ml Flush Syringe) 10 ml IV BID CHIKI Sodium Chloride (Sodium Chloride 0.9% 10 Ml Flush Syringe) 10 ml IV PRN PRN PRN Reason: LINE FLUSH Review of Systems Constitutional: fever, chills Ears, nose, mouth and throat: no nasal congestion, no sore throat Cardiovascular: no chest pain, no palpitations Respiratory: cough, shortness of breath, wheezing Gastrointestinal: no abdominal pain, no nausea, no vomiting, no diarrhea Genitourinary Female: no flank pain, no dysuria, no hematuria Musculoskeletal: no neck pain, no low back pain Integumentary: no rash, no pruritis Neurological: no headaches, no confusion Psychiatric: no anxiety, no depression Endocrine: no polyphagia, no polydipsia, no polyuria, no nocturia Exam - Constitutional Vitals: Temp Pulse Resp BP Pulse Ox 98.4 F 105 H 32 H 153/93 96 02/13/21 17:53 02/13/21 21:55 02/13/21 21:55 02/13/21 21:55 02/13/21 21:55 General appearance: Present: no acute distress, well-nourished, obese - EENT Eyes: Present: PERRL, EOM intact. Absent: scleral icterus ENT: hearing intact, clear oral mucosa, dentition normal - Neck Neck: Present: supple, normal ROM - Respiratory Respiratory effort: normal Respiratory: bilateral: diminished, wheezing (few scattered wheezes) - Cardiovascular Rhythm: regular Heart Sounds: Present: S1 & S2. Absent: gallop, systolic murmur, diastolic murmur, rub, click - Extremities Extremities: no ischemia, pulses intact, pulses symmetrical, No edema, normal temperature, normal color, Full ROM Peripheral Pulses: within normal limits - Abdominal General gastrointestinal: Present: soft, non-tender, non-distended, normal bowel sounds. Absent: mass - Integumentary Integumentary: Present: clear, warm, dry, normal turgor. Absent: rash - Musculoskeletal Musculoskeletal: strength equal bilaterally - Psychiatric Psychiatric: appropriate mood/affect, intact judgment & insight, memory intact, cooperative - Neurologic Neurologic: CNII-XII intact, no focal deficits, moves all extremities Results - Labs CBC & Chem 7: 02/13/21 15:52 02/13/21 15:52 Labs: Abnormal lab results 12/22/21 12/22/21 Range/Units 15:52 15:52 WBC 4.2 L (4.5-11.0) K/mm3 Hgb 14.8 H (10.1-14.3) gm/dl Hct 44.9 H (30.3-42.9) % [place] % (Auto) 16.0 H (0.0-7.3) % Lymph # (Auto) 0.9 L (1.2-5.4) K/mm3 Sodium 136 L (137-145) mmol/L Carbon Dioxide 17 L (22-30) mmol/L Glucose 101 H (65-100) mg/dL AST 290 H (5-40) units/L ALT 131 H (7-56) units/L Assessment and Plan - Patient Problems (1) Acute asthma exacerbation Current Visit: No Status: Acute Plan to address problem: Patient admitted and placed on nebulizing treatment and IV steroid. We will keep O2 saturation greater or equal to 92%. She is also placed on empiric IV antibiotics for possible underlying pneumonia/bronchitis. (2) Suspected COVID-19 virus infection Current Visit: Yes Status: Acute Plan to address problem: We will await COVID-19 testing. (3) Hypertension Current Visit: No Status: Acute Plan to address problem: We will resume routine home medications and monitor vital signs closely. (4) DVT prophylaxis Current Visit: No Status: Acute Plan to address problem: Patient placed on subcutaneous heparin. (5) Full code status Current Visit: Yes Status: Acute Plan to address problem: Patient is full code.
[2021-02-14] MEDS: cefTRIAXone/NS 2 GM/100 ML 2 GM/100 ML BAG IV SCH (00:42)
[2021-02-14] MEDS: IPRATROPIUM/ALBUTEROL SULFATE 3 ML AMPUL.NEB IH SCH ×4 (03:12→20:39)
[2021-02-14] MEDS: HEPARIN 5,000 UNIT/1 ML VIAL SUB-Q SCH ×3 (05:38→21:58)
[2021-02-14] MEDS: methylPREDNISolone Sod Succinate 40 MG/1 ML INJ IV SCH ×3 (05:38→21:58)
[2021-02-14] MEDS: LISINOPRIL 20 MG TAB PO SCH (09:20)
[2021-02-14] MEDS: AZITHROMYCIN 250 MG TAB PO SCH (09:20)
[2021-02-14] MEDS: amLODIPine 5 MG TAB PO SCH (09:20)
[2021-02-14] MEDS: hydroCHLOROthiazide 25 MG TAB PO SCH (09:21)
[2021-02-14] MEDS ORDERED: AZITHROMYCIN/NS 500 MG/250 ML 500 MG/250 ML BAG IV SCH ×2 (10:00)
[2021-02-15] MEDS: IPRATROPIUM/ALBUTEROL SULFATE 3 ML AMPUL.NEB IH SCH ×4 (01:12→19:37)
[2021-02-15] MEDS: cefTRIAXone/NS 2 GM/100 ML 2 GM/100 ML BAG IV SCH ×2 (03:17→23:19)
[2021-02-15] MEDS: HEPARIN 5,000 UNIT/1 ML VIAL SUB-Q SCH ×3 (05:29→21:22)
[2021-02-15] MEDS: methylPREDNISolone Sod Succinate 40 MG/1 ML INJ IV SCH ×3 (05:30→21:22)
--- NOTE | 2021-02-15 07:45 | Progress Note ---
Assessment and Plan (1) Acute asthma exacerbation Current Visit: No Status: Acute Plan to address problem: Patient admitted and placed on nebulizing treatment and IV steroid. We will keep O2 saturation greater or equal to 92%. She is also placed on empiric IV antibiotics for possible underlying pneumonia/bronchitis. (2) Suspected COVID-19 virus infection Current Visit: Yes Status: Acute Plan to address problem: Covid test pending. (3) Hypertension Current Visit: No Status: Acute Plan to address problem: We will resume routine home medications and monitor vital signs closely. (4) DVT prophylaxis Current Visit: No Status: Acute Plan to address problem: Patient placed on subcutaneous heparin. (5) Full code status Current Visit: Yes Status: Acute Plan to address problem: Patient is full code. Subjective Date of service: 02/14/21 Principal diagnosis: Bilateral pneumonia Interval history: 40-year-old female with known history of hypertension and asthma presenting to the emergency room today complaining of shortness of breath which has been ongoing for the past 1 week. Shortness of breath has gotten worse over the past few days and decided to report to the emergency room. She has been using her inhalers without any significant improvement. Patient has had generalized body aches and pain, cough which is nonproductive. Patient denies any fever or chills, no nausea vomiting, no diarrhea and no abdominal pain. She denies been intubated in the past. Patient denies any sick contacts and no recent travel. Denies any contact with anyone with COVID-19. She has been fully vaccinated against COVID-19. However she has not had a booster shots. During the course of her stay in the emergency room she became tachypneic and had diffuse wheezing. Work-up in the emergency room today, chest x-ray shows no acute findings. Labs were unremarkable. Objective - Constitutional Vitals: Vital Signs - 12hr 02/14/21 02/14/21 02/15/21 20:52 20:56 01:25 Temperature 98.0 F Pulse Rate 102 H Pulse Rate [ 92 H 94 H Anterior Bilateral Throughout] Respiratory 20 Rate Respiratory 20 20 Rate [Anterior Bilateral Throughout] Blood Pressure 141/77 O2 Sat by Pulse 97 Oximetry 02/15/21 04:36 Temperature Pulse Rate Pulse Rate [ Anterior Bilateral Throughout] Respiratory Rate Respiratory Rate [Anterior Bilateral Throughout] Blood Pressure O2 Sat by Pulse 96 Oximetry General appearance: Present: no acute distress, well-nourished - EENT Eyes: PERRL, EOM intact ENT: hearing intact, clear oral mucosa Ears: bilateral: normal - Neck Neck: supple, normal ROM - Respiratory Respiratory effort: normal Respiratory: bilateral: CTA - Breasts Breasts: normal - Cardiovascular Heart rate: 78 Rhythm: regular Heart Sounds: Present: S1 & S2. Absent: gallop, rub Extremities: pulses intact, No edema, normal color, Full ROM - Gastrointestinal General gastrointestinal: Present: soft, non-tender, non-distended, normal bowel sounds - Genitourinary Female genitourinary: normal - Integumentary Integumentary: clear, warm, dry - Musculoskeletal Musculoskeletal: 1, strength equal bilaterally - Neurologic Neurologic: moves all extremities - Psychiatric Psychiatric: memory intact, appropriate mood/affect, intact judgment & insight - Labs CBC & Chem 7: 02/15/21 07:39 02/15/21 07:39 Labs: Abnormal lab results 02/13/21 Range/Units Unknown Coronavirus (PCR) Positive A (Negative)
[2021-02-15 09:01] LABS: Basophils % (Auto) 0.1 % (0.0-1.8); Hematocrit 44.3 % (30.3-42.9); Hemoglobin 14.2 gm/dl (10.1-14.3); Lymphocytes # (Auto) 1.6 K/mm3 (1.2-5.4); Lymphocytes % (Auto) 11.2 % (13.4-35.0); Mean Corpuscular HGB Conc 32 % (30-34); Mean Corpuscular Volume 92 fl (79-97); Monocytes # (Auto) 1.1 K/mm3 (0.0-0.8); Monocytes % (Auto) 7.6 % (0.0-7.3); Platelet Count 213 K/mm3 (140-440); Red Blood Count 4.83 M/mm3 (3.65-5.03); Red Cell Distribution Width 15.1 % (13.2-15.2)
[2021-02-15 09:13] LABS: Blood Urea Nitrogen 10 mg/dL (7-17); Calcium 8.8 mg/dL (8.4-10.2); Hemolysis Index 7
[2021-02-15 09:40] LABS: BUN/Creatinine Ratio 17; INR 0.99 (0.87-1.13)
[2021-02-15] MEDS: hydroCHLOROthiazide 25 MG TAB PO SCH (10:20)
[2021-02-15] MEDS: amLODIPine 5 MG TAB PO SCH (10:20)
[2021-02-15] MEDS: AZITHROMYCIN 250 MG TAB PO SCH (10:21)
[2021-02-15] MEDS: LISINOPRIL 20 MG TAB PO SCH (10:21)
--- NOTE | 2021-02-15 17:30 | Progress Note ---
Assessment and Plan (1) Acute asthma exacerbation Current Visit: No Status: Acute Plan to address problem: Patient admitted and placed on nebulizing treatment and IV steroid. We will keep O2 saturation greater or equal to 92%. She is also placed on empiric IV antibiotics for possible underlying pneumonia/bronchitis. (2) Suspected COVID-19 virus infection Current Visit: Yes Status: Acute Plan to address problem: Covid test positive (3) Hypertension Current Visit: No Status: Acute Plan to address problem: We will resume routine home medications and monitor vital signs closely. (4) DVT prophylaxis Current Visit: No Status: Acute Plan to address problem: Patient placed on subcutaneous heparin. (5) Full code status Current Visit: Yes Status: Acute Plan to address problem: Patient is full code. Subjective Date of service: 02/15/21 Principal diagnosis: COVID-19 positive test (U07.1, COVID-19) with Acute Pne isai (J12.89, O Interval history: 40-year-old female with known history of hypertension and asthma presenting to the emergency room today complaining of shortness of breath which has been ongoing for the past 1 week. Shortness of breath has gotten worse over the past few days and decided to report to the emergency room. She has been using her inhalers without any significant improvement. Patient has had generalized body aches and pain, cough which is nonproductive. Patient denies any fever or chills, no nausea vomiting, no diarrhea and no abdominal pain. She denies been intubated in the past. Patient denies any sick contacts and no recent travel. Denies any contact with anyone with COVID-19. She has been fully vaccinated against COVID-19. However she has not had a booster shots. During the course of her stay in the emergency room she became tachypneic and had diffuse wheezing. Work-up in the emergency room today, chest x-ray shows no acute findings. Labs were unremarkable. 02/15/2021 Covid positive Doing well on room air Objective - Constitutional Vitals: Vital Signs - 12hr 02/15/21 02/15/21 02/15/21 08:18 12:00 13:53 Pulse Rate [ 57 L 65 Anterior Bilateral Throughout] Respiratory 18 Rate Respiratory 18 20 Rate [Anterior Bilateral Throughout] O2 Sat by Pulse 98 96 Oximetry General appearance: Present: no acute distress, well-nourished - EENT Eyes: PERRL, EOM intact ENT: hearing intact, clear oral mucosa Ears: bilateral: normal - Neck Neck: supple, normal ROM - Respiratory Respiratory effort: normal Respiratory: bilateral: CTA - Breasts Breasts: normal - Cardiovascular Heart rate: 76 Rhythm: regular Heart Sounds: Present: S1 & S2. Absent: gallop, rub Extremities: pulses intact, No edema, normal color, Full ROM - Gastrointestinal General gastrointestinal: Present: soft, non-tender, non-distended, normal bowel sounds - Genitourinary Female genitourinary: normal - Integumentary Integumentary: clear, warm, dry - Musculoskeletal Musculoskeletal: 1, strength equal bilaterally - Neurologic Neurologic: moves all extremities - Psychiatric Psychiatric: memory intact, appropriate mood/affect, intact judgment & insight - Labs CBC & Chem 7: 02/15/21 07:39 02/15/21 07:39 Labs: Abnormal lab results 02/15/21 02/15/21 Range/Units 07:39 07:39 WBC 14.5 H (4.5-11.0) K/mm3 Hct 44.3 H (30.3-42.9) % Lymph % (Auto) 11.2 L (13.4-35.0) % [place] % (Auto) 7.6 H (0.0-7.3) % [place] # (Auto) 1.1 H (0.0-0.8) K/mm3 Seg Neutrophils % 81.1 H (40.0-70.0) % Seg Neutrophils # 11.7 H (1.8-7.7) K/mm3 Carbon Dioxide 21 L (22-30) mmol/L Glucose 173 H (65-100) mg/dL
[2021-02-16] MEDS: IPRATROPIUM/ALBUTEROL SULFATE 3 ML AMPUL.NEB IH SCH ×3 (02:01→13:36)
[2021-02-16] MEDS: HEPARIN 5,000 UNIT/1 ML VIAL SUB-Q SCH ×2 (05:24→14:00)
[2021-02-16] MEDS: methylPREDNISolone Sod Succinate 40 MG/1 ML INJ IV SCH ×2 (05:25→14:00)
[2021-02-16] MEDS: hydroCHLOROthiazide 25 MG TAB PO SCH (10:44)
[2021-02-16] MEDS: AZITHROMYCIN 250 MG TAB PO SCH (10:45)
[2021-02-16] MEDS: LISINOPRIL 20 MG TAB PO SCH (10:45)
[2021-02-16] MEDS: amLODIPine 5 MG TAB PO SCH (10:45)
--- NOTE | 2021-02-16 15:17 | Discharge Summary ---
Providers - Providers Date of Admission: 02/13/21 23:16 Date of discharge: 02/16/21 Attending physician: BENJI WAYNE Primary care physician: REED WORKER Hospitalization Condition: Stable Hospital course: Subjective Date of service: 02/16/21 Principal diagnosis: COVID-19 positive test (U07.1, COVID-19) with Acute Pn e[place] (J12.89, O Interval history: 40-year-old female with known history of hypertension and asthma presenting to the emergency room today complaining of shortness of breath which has been ongoing for the past 1 week. Shortness of breath has gotten worse over the past few days and decided to report to the emergency room. She has been using her inhalers without any significant improvement. Patient has had generalized body aches and pain, cough which is nonproductive. Patient denies any fever or chills, no nausea vomiting, no diarrhea and no abdominal pain. She denies been intubated in the past. Patient denies any sick contacts and no recent travel. Denies any contact with anyone with COVID-19. She has been fully vaccinated against COVID-19. However she has not had a booster shots. During the course of her stay in the emergency room she became tachypneic and had diffuse wheezing. Work-up in the emergency room today, chest x-ray shows no acute findings. Labs were unremarkable. 02/15/2021 Covid positive Doing well on room air 02/16/2021 Patient doing well on room air and ambulation On ambulation oxygen level is 96% Assessment and Plan (1) Acute asthma exacerbation Current Visit: No Status: Acute Plan to address problem: Wheezing has resolved (2) Suspected COVID-19 virus infection Current Visit: Yes Status: Acute Plan to address problem: Covid test positive Will discharge on oral Decadron, vitamin C, vitamin D and zinc sulfate Patient to quarantine herself for another 10 days Recheck coronavirus PCR in 1 week (3) Hypertension Current Visit: No Status: Acute Plan to address problem: We will resume routine home medications and monitor vital signs closely. (4) DVT prophylaxis Current Visit: No Status: Acute Plan to address problem: Patient placed on subcutaneous heparin. (5) Full code status Current Visit: Yes Status: Acute Plan to address problem: Patient is full code. Disposition: 01 HOME / SELF CARE / HOMELESS Final Discharge Diagnosis (Prints w/discharge instructions): Acute respiratory failure with hypoxia. Covid pneumonia. Covid positive. Asthma exacerbation Time spent for discharge: 35 minutes - Discharge Diagnoses (1) Acute respiratory failure with hypoxia Status: Acute (2) Acute asthma exacerbation Status: Acute (3) Bilateral pneumonia Status: Acute (4) Person under investigation for COVID-19 Status: Acute (5) DVT prophylaxis Status: Acute Core Measure Documentation - Palliative Care Palliative Care/ Comfort Measures: Not Applicable - Core Measures Any of the following diagnoses?: none Exam - Constitutional Vitals: Temp Pulse Resp BP Pulse Ox 98.6 F 100 H 20 119/74 97 02/16/21 11:12 02/16/21 13:36 02/16/21 13:36 02/16/21 11:12 02/16/21 11:12 General appearance: Present: no acute distress, well-nourished - EENT Eyes: Present: PERRL ENT: hearing intact, clear oral mucosa - Neck Neck: Present: supple, normal ROM - Respiratory Respiratory effort: normal Respiratory: bilateral: CTA - Cardiovascular Heart rate: 78 Rhythm: regular Heart Sounds: Present: S1 & S2. Absent: rub, click - Extremities Extremities: pulses symmetrical, No edema Peripheral Pulses: within normal limits - Abdominal General gastrointestinal: Present: soft, non-tender, non-distended, normal bowel sounds Female genitourinary: Present: normal - Integumentary Integumentary: Present: clear, warm, dry - Musculoskeletal Musculoskeletal: gait normal, strength equal bilaterally - Psychiatric Psychiatric: appropriate mood/affect, intact judgment & insight - Neurologic Neurologic: CNII-XII intact, moves all extremities - Allied Health Allied health notes reviewed: nursing, case management Plan Activity: no restrictions Diet: regular Follow up with: [facility] [Provider Group] - 3-5 Days [facility] [Provider Group] - 3-5 Days [facility] [Primary Care Provider] - 3-5 Days Forms: Work/School Release Form(ED) Prescriptions: Prednisone [predniSONE 10 mg (6-Day Pack, 21 Tabs)] 10 mg PO .TAPER #1 tab.ds.pk Montelukast [Singulair] 10 mg PO QPM #30 tablet Azithromycin [Zithromax Z-STACY] 0 mg PO DAILY #6 tab
[2021-02-16 16:45] VITALS: BP 110/77
== END 2021-02-16 18:45 | disposition left against medical advice (07) | DRG 177 ==
LOC: ED 13:32 → 3A 23:16 → OBSVTOIN 23:16
PROVIDERS: ADMIT Internal Medicine Geriatric Medicine; ATTEND Internal Medicine
DX: U07.1 COVID-19 (principal); J96.01 Acute respiratory failure with hypoxia; J12.82 Pneumonia due to coronavirus disease 2019; J45.901 Unspecified asthma with (acute) exacerbation; I10 Essential (primary) hypertension; Z90.49 Acquired absence of other specified parts of digestive tract; Z87.891 Personal history of nicotine dependence
CPT/HCPCS: 36415; 71046; 80048; 80053; 83880; 85025; 85379; 85610; 94640; 94644; 99285; G0378; Q0162; J0696; J1100; J2270; J2920; J3475; J7030; U0003

== ENCOUNTER 2021-09-13 18:40 | Emergency (ER) | payer SELFPAY ==
[2021-09-14] MEDS ORDERED: cloNIDine 0.2 MG TAB PO ONE (07:20)
--- NOTE | 2021-09-14 08:16 | XRay Report ---
CHEST 2 VIEWS INDICATION / CLINICAL INFORMATION: HA. COMPARISON: 02/13/21. FINDINGS: SUPPORT DEVICES: None. HEART / MEDIASTINUM: The heart size and pulmonary vasculature are normal. LUNGS / PLEURA: There is mild scarring in the left lateral lung base. No new pulmonary or pleural abn ormality. No pneumothorax. ADDITIONAL FINDINGS: No significant additional findings. IMPRESSION: No acute abnormality or significant change. Signer Name: Lupillo Aguilar MD Signed: 09/14/2021 8:12 AM Workstation Name: [id number]
[2021-09-14] MEDS ORDERED: IPRATROPIUM 0.02% NEBU 2.5 ML IH ONE (10:03)
[2021-09-14] MEDS ORDERED: ALBUTEROL 2.5 MG/3 ML NEBU IH ONE (10:03)
[2021-09-14] MEDS ORDERED: FUROSEMIDE 40 MG/4 ML INJ IV ONE (10:04)
[2021-09-14 10:17] LABS: Basophils % (Auto) 0.8 % (0.0-1.8); Eosinophils # (Auto) 0.6 K/mm3 (0.0-0.4); Hematocrit 42.4 % (30.3-42.9); Hemoglobin 14.3 gm/dl (10.1-14.3); Lymphocytes # (Auto) 2.5 K/mm3 (1.2-5.4); Lymphocytes % (Auto) 41.1 % (13.4-35.0); Mean Corpuscular HGB Conc 34 % (30-34); Mean Corpuscular Volume 92 fl (79-97); Monocytes # (Auto) 0.5 K/mm3 (0.0-0.8); Monocytes % (Auto) 8.5 % (0.0-7.3); Platelet Count 194 K/mm3 (140-440); Red Blood Count 4.63 M/mm3 (3.65-5.03); Red Cell Distribution Width 16.2 % (13.2-15.2)
[2021-09-14 10:40] LABS: Alanine Aminotransferase 74 units/L (7-56); Albumin 3.7 g/dL (3.9-5); Blood Urea Nitrogen 5 mg/dL (7-17); Hemolysis Index 6
[2021-09-14 10:43] LABS: Creatine Kinase MB < 1.0 ng/mL (0.0-4.0)
[2021-09-14 10:43] LABS: BUN/Creatinine Ratio 8
[2021-09-14 10:53] LABS: Bilirubin,Urine NEG (Negative); Blood,Urine NEG (Negative); Color,Urine Yellow (Yellow); Protein,Urine <15 mg/dL mg/dL (Negative); Urobilinogen,Urine < 2.0 mg/dL (<2.0)
[2021-09-14 10:56] LABS: Bacteria,Urine 1+ /HPF (Negative); WBC,Urine < 1.0 /HPF (0.0-6.0)
[2021-09-14] MEDS ORDERED: dilTIAZem 25 MG/5 ML INJ IV ONE (12:08)
[2021-09-14] MEDS ORDERED: methylPREDNISolone Sod Succinate 125 MG/2 ML INJ IV ONE (12:40)
--- NOTE | 2021-09-14 12:42 | Cat Scan Report ---
CTA CHEST WITH CONTRAST INDICATION / CLINICAL INFORMATION: SOB. TECHNIQUE: Axial CT images were obtained through the chest after injection of 98 cc Omni 350 IV contr ast. 3 plane MIP and/or 3D reconstructions were produced. All CT scans at this location are performed using CT dose reduction for ALARA by means of automated exposure control. COMPARISON: None available. FINDINGS: PULMONARY EMBOLUS: None. THORACIC AORTA: No significant abnormality. HEART: No significant abnormality. CORONARY ARTERY CALCIFICATION: Absent -- None. MEDIASTINUM / DAVINA: No significant abnormality. PLEURA: No pleural effusion. No pneumothorax. LUNGS: No acute air space or interstitial disease. ADDITIONAL FINDINGS: None. UPPER ABDOMEN: No acute findings. Gallbladder absent. SKELETAL STRUCTURES: No significant osseous abnormality. IMPRESSION: 1. No CT evidence for pulmonary embolism. 2. No acute findings. Signer Name: Dominik Henning MD Signed: 09/14/2021 12:38 PM Workstation Name: [id number]
[2021-09-14] MEDS ORDERED: ONDANSETRON 4 MG/2 ML INJ IV ONE (12:57)
--- NOTE | 2021-09-14 13:55 | Emergency Department Report ---
ED General Adult HPI - General Chief complaint: High BP Stated complaint: SOB/BLURRY SIGHT PUI?: No Time Seen by Provider: 09/14/21 10:02 Source: patient Mode of arrival: Ambulatory Limitations: No Limitations - History of Present Illness Initial comments: SOB AND HTN X 2 WEEKS, REPORTS BLURRY VISION SINCE YESTERDAY, STATES THAT SHE IS UTD ON HER HTN MEDICATIONS, PMH HTN AND ASTHMA -: Gradual, hour(s) Location: chest Radiation: non-radiation Severity scale (0 -10): 5 Associated Symptoms: cough, shortness of breath - Related Data Previous Rx's Medication Instructions Recorded Last Taken Type Albuterol Mdi (or & Nicu Only) 1 puff IH QID PRN 30 Days #1 01/14/21 Unknown Rx [ProAir HFA Inhaler] inhalation Fluticasone/Salmeterol [Advair 1 puff IH BID 30 Days #1 disk.w.dev 01/14/21 Unknown Rx Diskus 250-50 mcg] amLODIPine 5 mg PO QDAY 30 Days #30 tablet 01/14/21 Unknown Rx hydroCHLOROthiazide [HCTZ] 25 mg PO DAILY 30 Days #30 tablet 01/14/21 Unknown Rx Azithromycin [Zithromax Z-STACY] 0 mg PO DAILY #6 tab 02/13/21 Unknown Rx Montelukast [Singulair] 10 mg PO QPM #30 tablet 02/13/21 Unknown Rx Prednisone [predniSONE 10 mg 10 mg PO .TAPER #1 tab.ds.pk 02/13/21 Unknown Rx (6-Day Pack, 21 Tabs)] ALBUTEROL NEB's [Proventil 0.083% 2.5 mg IH Q4HRT PRN #50 nebu 02/16/21 Unknown Rx NEBS] Ascorbic Acid [Vitamin C] 1,000 mg PO Q12H 10 Days #20 tablet 02/16/21 Unknown Rx Cholecalciferol (Vitamin D3) 5,000 unit PO QDAY #30 capsule 02/16/21 Unknown Rx [Vitamin D3 5,000 UNIT] Dexamethasone [Decadron] 8 mg PO QDAY #8 tablet 02/16/21 Unknown Rx Zinc Sulfate 220 mg PO QDAY #10 capsule 02/16/21 Unknown Rx Allergies Allergy/AdvReac Type Severity Reaction Status Date / Time No Known Allergies Allergy Unverified 06/25/14 11:53 ED Review of Systems ROS: Stated complaint: SOB/BLURRY SIGHT Other details as noted in HPI Constitutional: denies: chills, fever Eyes: denies: eye pain, eye discharge, vision change ENT: denies: ear pain, throat pain Respiratory: denies: cough, shortness of breath, wheezing Cardiovascular: denies: chest pain, palpitations Endocrine: no symptoms reported Gastrointestinal: denies: abdominal pain, nausea, diarrhea Genitourinary: denies: urgency, dysuria, discharge Musculoskeletal: denies: back pain, joint swelling, arthralgia Skin: denies: rash, lesions Neurological: denies: headache, weakness, paresthesias Psychiatric: denies: anxiety, depression Hematological/Lymphatic: denies: easy bleeding, easy bruising ED Past Medical Hx - Past Medical History Previous Medical History?: Yes Hx Hypertension: Yes Hx Asthma: Yes Additional medical history: back pain , hep b - Surgical History Past Surgical History?: Yes Hx Cholecystectomy: Yes Additional Surgical History: tonsillectomy 2001 - Social History Smoking Status: Never Smoker Substance Use Type: None - Medications Home Medications: Home Medications Medication Instructions Recorded Confirmed Last Taken Type Albuterol Mdi (or & Nicu Only) 1 puff IH QID PRN 30 Days #1 01/14/21 02/14/21 Unknown Rx [ProAir HFA Inhaler] inhalation Fluticasone/Salmeterol [Advair 1 puff IH BID 30 Days #1 disk.w.dev 01/14/21 02/14/21 Unknown Rx Diskus 250-50 mcg] amLODIPine 5 mg PO QDAY 30 Days #30 tablet 01/14/21 02/14/21 Unknown Rx hydroCHLOROthiazide [HCTZ] 25 mg PO DAILY 30 Days #30 tablet 01/14/21 02/14/21 Unknown Rx Azithromycin [Zithromax Z-STACY] 0 mg PO DAILY #6 tab 02/13/21 Unknown Rx Montelukast [Singulair] 10 mg PO QPM #30 tablet 02/13/21 Unknown Rx Prednisone [predniSONE 10 mg 10 mg PO .TAPER #1 tab.ds.pk 02/13/21 Unknown Rx (6-Day Pack, 21 Tabs)] ALBUTEROL NEB's [Proventil 0.083% 2.5 mg IH Q4HRT PRN #50 nebu 02/16/21 Unknown Rx NEBS] Ascorbic Acid [Vitamin C] 1,000 mg PO Q12H 10 Days #20 tablet 02/16/21 Unknown Rx Cholecalciferol (Vitamin D3) 5,000 unit PO QDAY #30 capsule 02/16/21 Unknown Rx [Vitamin D3 5,000 UNIT] Dexamethasone [Decadron] 8 mg PO QDAY #8 tablet 02/16/21 Unknown Rx Zinc Sulfate 220 mg PO QDAY #10 capsule 02/16/21 Unknown Rx ED Physical Exam - General Limitations: No Limitations General appearance: alert, anxious - Head Head exam: Present: atraumatic, normocephalic - Eye Eye exam: Present: normal appearance - ENT ENT exam: Present: mucous membranes moist - Neck Neck exam: Present: normal inspection - Respiratory Respiratory exam: Present: wheezes, decreased breath sounds. Absent: respiratory distress - Cardiovascular Cardiovascular Exam: Present: regular rate, normal rhythm. Absent: systolic murmur, diastolic murmur, rubs, gallop - GI/Abdominal GI/Abdominal exam: Present: soft, normal bowel sounds - Extremities Exam Extremities exam: Present: normal inspection - Back Exam Back exam: Present: normal inspection - Neurological Exam Neurological exam: Present: alert, oriented X3 - Psychiatric Psychiatric exam: Present: normal affect, normal mood - Skin Skin exam: Present: warm, dry, intact, normal color. Absent: rash ED Course Vital Signs 09/13/21 09/14/21 09/14/21 19:26 07:13 07:27 Temperature 98.9 F Pulse Rate 68 70 80 Respiratory 18 22 Rate Blood Pressure 198/120 214/118 Blood Pressure 214/118 [Right] O2 Sat by Pulse 97 100 Oximetry 09/14/21 09/14/21 09/14/21 10:01 10:15 10:20 Temperature Pulse Rate 60 55 L 60 Respiratory 17 18 20 Rate Blood Pressure 125/86 125/86 Blood Pressure 122/89 [Right] O2 Sat by Pulse 98 98 97 Oximetry 09/14/21 09/14/21 09/14/21 10:21 10:30 11:15 Temperature Pulse Rate 56 L 58 L Respiratory 23 16 14 Rate Blood Pressure 125/86 116/84 Blood Pressure [Right] O2 Sat by Pulse 98 98 99 Oximetry 09/14/21 09/14/21 09/14/21 11:31 11:45 12:01 Temperature Pulse Rate 59 L 52 L 59 L Respiratory 12 13 14 Rate Blood Pressure 124/83 122/89 125/78 Blood Pressure [Right] O2 Sat by Pulse 95 97 96 Oximetry 09/14/21 12:19 Temperature Pulse Rate 64 Respiratory 22 Rate Blood Pressure 125/78 Blood Pressure [Right] O2 Sat by Pulse 100 Oximetry ED Medical Decision Making - Lab Data Result diagrams: 09/14/21 09:28 09/14/21 09:28 - Radiology Data Radiology results: report reviewed, image reviewed - Medical Decision Making work up unremarkable , x ray negative , rt given with steriods much imrpovement , vss no distress Critical care attestation.: If time is entered above; I have spent that time in minutes in the direct care of this critically ill patient, excluding procedure time. ED Disposition Clinical Impression: Shortness of breath, Acute asthma exacerbation Disposition: 01 HOME / SELF CARE / HOMELESS Is pt being admited?: No Does the pt Need Aspirin: No Condition: Stable Instructions: Asthma, Adult, Shortness of Breath, Adult Referrals: PRIMARY CARE, [Primary Care Provider] - 3-5 Days
[2021-09-14 14:42] VITALS: BP 156/91
--- NOTE | 2021-09-16 09:59 | Electrocardiograph Report ---
[facility] Test Date: 2021-09-14 Test Time: 09:02:21 Pat Name: RILEY BACON Department: Room: Gender: F [employer] Guide: 911 : 1980 Requested By: JERMAIN PASCAL Order Number: [id number] Reading MD: Justin Westfall Measurements Intervals [place] Rate: 57 P: 33 FL: 170 QRS: 54 QRSD: 99 T: 28 QT: 464 QTc: 452 Interpretive Statements Sinus rhythm Consider inferior infarct No previous ECG available for comparison Electronically Signed On 09-16-2021 9:59:44 EDT by Justin Westfall
== END 2021-09-14 14:44 | disposition home or self-care (01) ==
LOC: ED 18:40
DX: J45.901 Unspecified asthma with (acute) exacerbation (principal); H53.8 Other visual disturbances; I10 Essential (primary) hypertension; Z90.89 Acquired absence of other organs; Z79.899 Other long term (current) drug therapy
CPT/HCPCS: 36415; 71046; 71275; 80053; 81001; 82550; 82553; 83880; 84484; 85025; 93005; 94640; 96374; 96375; 99285; J1940; J2405; J2930; Q9967; 99284